=== PATIENT | female | born 1995 | race Caucasian/White ===

== ENCOUNTER → 2018-01-31 | Outpatient (CLI) | payer BC ==
[2018-01-31 07:36] LABS: BASOPHILS % (AUTO) 1 % (0-10); EOSINOPHILS # (AUTO) 0.2 10^3/uL (0.0-0.3); EOSINOPHILS % (AUTO) 3 % (0-10); HEMATOCRIT 40 % (35-52); HEMOGLOBIN 13.5 G/DL (11.5-16.0); LYMPHOCYTES % (AUTO) 34 % (12-44); MEAN CORPUSCULAR HEMOGLOBIN 31 PG (25-34); MEAN CORPUSCULAR HGB CONC 34 G/DL (32-36); MEAN CORPUSCULAR VOLUME 92 FL (80-99); MEAN PLATELET VOLUME 10.3 FL (7.4-10.4); MONOCYTES # (AUTO) 0.6 X 10^3 (0.0-1.0); MONOCYTES % (AUTO) 9 % (0-12); NEUTROPHILS # (AUTO) 3.2 X 10^3 (1.8-7.8); NEUTROPHILS % (AUTO) 54 % (42-75); PLATELET COUNT 264 10^3/uL (130-400); RED BLOOD COUNT 4.37 10^6/uL (4.35-5.85); RED CELL DISTRIBUTION WIDTH 12.4 % (10.0-14.5)
[2018-01-31 07:54] LABS: ALANINE AMINOTRANSFERASE 30 U/L (0-55); ALBUMIN 4.4 GM/DL (3.2-4.5); ALKALINE PHOSPHATASE 57 U/L (40-136); BILIRUBIN,TOTAL 0.5 MG/DL (0.1-1.0); BUN/CREATININE RATIO 12; CALCIUM 9.5 MG/DL (8.5-10.1); CARBON DIOXIDE 22 MMOL/L (21-32); CHLORIDE 104 MMOL/L (98-107); CREATININE SERUM 0.77 MG/DL (0.60-1.30); GFR ESTIMATED > 60; GLUCOSE 82 MG/DL (70-105); POTASSIUM 3.8 MMOL/L (3.6-5.0); SODIUM 135 MMOL/L (135-145); TOTAL PROTEIN 7.1 GM/DL (6.4-8.2)
[2018-01-31 08:15] LABS: FREE T4 (FREE THYROXINE) 1.15 NG/DL (0.70-1.48)
== END ==
LOC: LAB 07:05
PROVIDERS: ATTEND Internal Medicine
DX: N92.6 Irregular menstruation, unspecified (principal); E03.9 Hypothyroidism, unspecified; Z79.899 Other long term (current) drug therapy
CPT/HCPCS: 36415; 80053; 82670; 84144; 84403; 84439; 84443; 84481; 85025

== ENCOUNTER → 2018-03-01 | Outpatient (CLI) | payer BC ==
--- NOTE | 2018-03-01 08:20 | Diagnostic Imaging Report ---
PROCEDURE: US Thyroid. TECHNIQUE: Multiple real-time grayscale images were obtained of the thyroid in various projections. INDICATION: Hypothyroidism. FINDINGS: Right and left lobes of the thyroid gland measure 4.1 x 1.9 x 1.7 cm and 4.5 x 1.7 x 1.4 cm, respectively. Thyroid parenchyma is heterogeneous without discrete dominant mass. There is normal bilateral blood flow. No periglandular abnormality is seen. IMPRESSION: Heterogeneous thyroid gland could be related to chronic thyroiditis or developing multinodular goiter, however, no dominant lesion is identified. Dictated by: Dictated on workstation # [id number]
== END ==
LOC: RAD 07:44
PROVIDERS: ATTEND Nurse Practitioner
DX: E03.9 Hypothyroidism, unspecified (principal)
CPT/HCPCS: 76536

== ENCOUNTER → 2018-04-03 | Outpatient (CLI) | payer BC ==
[2018-04-03 09:28] LABS: FREE T4 (FREE THYROXINE) 1.36 NG/DL (0.70-1.48)
== END ==
LOC: LAB 08:21
PROVIDERS: ATTEND Nurse Practitioner
DX: E03.9 Hypothyroidism, unspecified (principal)
CPT/HCPCS: 36415; 84439; 84443; 84481

== ENCOUNTER → 2019-03-08 | Outpatient (CLI) | payer BC, OTHER ==
--- NOTE | 2019-03-08 14:36 | Diagnostic Imaging Report ---
EXAMINATION: US Thyroid. TECHNIQUE: Multiple real-time grayscale images were obtained of the thyroid in various projections. HISTORY: MULTI NODULAR GOITER FINDINGS: Comparison is 03/01/2018 The right lobe of the thyroid measures 4.2 x 2.1 x 1.3 cm. The left lobe of the thyroid measures 4.3 x 1.7 x 1.9 cm. The isthmus measures 3 mm. The size of the thyroid is normal. The echogenicity is mildly heterogeneous. There are no nodules. IMPRESSION: 1. No suspicious thyroid nodules. TIRADS categories: TIRADS 1: Benign No FNA or follow-up required TIRADS 2: Not Suspicious No FNA or follow-up required TIRADS 3: Mildly Suspicious FNA if ? 2.5 cm Follow if ? 1.5 cm (At 1, 3 and 5 years from initial scan) TIRADS 4: Moderately Suspicious FNA if ? 1.5 cm Follow if ? 1 cm (At 1, 2, 3 and 5 years from initial scan) TIRADS 5: Highly Suspicious FNA if ? 1 cm Follow if ? 0.5 cm (Annually for 5 years from initial scan) Dictated by: Dictated on workstation # [id number]
== END ==
LOC: RAD 13:50
PROVIDERS: ATTEND Family Medicine
DX: E04.2 Nontoxic multinodular goiter (principal)
CPT/HCPCS: 76536

== ENCOUNTER 2019-07-30 05:42 | Outpatient (CLI) | payer BC ==
[~2019-07-30] VITALS: Ht 175.3 cm; Wt 81.8 kg
[2019-07-30] MEDS ORDERED: NORG1TAB14 PO (12:48)
[2019-07-30] MEDS ORDERED: LEVO100T7 PO (12:48)
== END 2019-07-30 12:58 | disposition home or self-care (01) ==
LOC: PREOP 05:42
PROVIDERS: ATTEND Otolaryngology Otolaryngology/Facial Plastic Surgery
DX: Z01.818 Encounter for other preprocedural examination (principal)

== ENCOUNTER 2019-08-08 07:48 | Day surgery (SDC) | payer BC, OTHER ==
[~2019-08-08] VITALS: Ht 175.3 cm; Wt 81.8 kg
[2019-08-08] VITALS (13 sets, daily range): BP systolic 117–147; BP diastolic 63–95
[~2019-08-08 07:48] MED LIST: LEVO100T7 PO; NORG1TAB14 PO
--- OUTSIDE RECORDS SUMMARY | 2019-08-08 07:52 | XMS REPORT | Clinical Summary ---
Author Author Admin, Carolyn KUMARI Organization [facility] Address Unknown Phone Unavailable Allergies, Adverse Reactions, Alerts Allergy Name Reaction Description Start Date Severity Status Pr ovider NKDA Critical Active Afia Lindo MD Conditions or Problems Problem Name Problem Code Onset Date Status Entry Date Provider Comment Standard Description Annotate Irregular menses 626.4 Active Afia Lindo MD Irregular menstrual cycle Contraceptive management V25.09 Inactive Terry Lindo MD Encounter for other general counseling and advice on c ontraceptive management Contraceptive pill surveillance V25.41 Active 2018 Afia Lindo MD Encounter for surveillance of contracept nova pill WELL WOMAN EXAMINATION V72.31 Active Afia pa MD Routine gynecological examination Hypothyroidism 244.9 Active Afia Lindo MD Unspecified hypothyroidism BMI 27-27.9 Active Afia Lindo MD Body Mass Index 27.0-27.9, adult Overweight (BMI 25-29.9) Active Afia hedrick MD Overweight Medication List Medication Instructions Start Date Stop Date Generic Name NDC Status Provider Patient Instruction EMBEDA 30-1.2 MG ORAL CAPSULE EXTENDED RELEASE 1 table t daily for antibodies for thyroid MORPHINE-NALTREXONE 48175079433 Active Afia Lindo MD Active LEVOTHYROXINE SODIUM 100 MCG ORAL TABLET 1 tablet daily LEVOTHYROXINE SODIUM 28980549158 Active Afia Lindo MD Act nova SPRINTEC 28 0.25-35 MG-MCG ORAL TABLET 1 pill by mouth daily 10/26 NORGESTIMATE-ETH ESTRADIOL 04075620932 Active Afia Lindo MD Active MICROGESTIN /20 1-20 MG-MCG ORAL TABLET 1 tablet daily NORETHINDRONE ACET-ETHINYL EST 15916700134 No Longer Active Afia Lindo MD Active PROGESTERONE MICRONIZED CREAM Apply 1/2 to 1ML on arms , chest and abdomen at bedtime day's - of cycle then 7 days off-100mg PROGESTERONE MICRONIZED CREA 78537912785 No Longer Active Afia Lindo MD Active PROGESTERONE MICRONIZED CREAM Apply 1/2 to 1ML on arms , chest and abdomen at bedtime day's 06-11 of cycle then 7 days off-100mg PROGESTERONE MICRONIZED CREAM PROGESTERONE MICRONIZED CREA I nactive MICROGESTIN 1/20 1-20 MG-MCG ORAL TABLET 1 tablet daily MICROGESTIN 1/20 1-20 MG-MCG ORAL TABLET 7422220 NORETHINDRONE ACET- ETHINYL EST Inactive Advance Directives Directive Description Start Date PERMISSION TO SHARE Vital Signs Date Name Value Unit Range Description blood pressure, diastolic, repeated by physician 68 BP hargrove blood pressure, diastolic 68 mm[Hg] BP hargrove blood pressure, systolic, repeated by physician 121 BP sys blood pressure, systolic 121 mm[Hg] BP sys height E&M 69 [in_us] Bdy height pulse rate E&M 78 /min Heart rate temperature E&M 98.8 [degF] Body temp erature weight E&M 183.20 [lb_av] Weight Measure d Diagnostic Results Date Name Value Unit Range Description Lab Report: Chlamydia/GC APTIMA/53758 - Lab chlamydia DNA probe NOT DETECTED NOT DETECTED Lab Report: Chlamydia/GC APTIMA/13212 - Microbiology Neisseria gonorrhoeae DNA probe NOT DETECTED NO T DETECTED Encounters Code Encounter Date Provider Facility CPT-25704 Level 4 Est. Patient 15:26:22 CDT Afia mckinney MD [facility] CPT-21122 Level 3 Est. Patient 13:04:08 CDT Afia mckinney MD [facility] CPT-28111 Level 4 New Patient 12:04:05 CDT Afia sosa MD [facility] Procedures Code Procedure Name Date Entry Date Standard Desc ription CPT-13461 Prv Med Est Pt 18-39yrs 11:10:24 CDT 02/15 CPT-24987 Prv Med New Pt 18-39 yrs 11:35:44 CDT 02/09 CPT-73490 Sono pelvis non OB uterus ovaries cervix - XRAY USE ONLY 12:21:21 CDT
--- OUTSIDE RECORDS SUMMARY | 2019-08-08 07:52 | XMS REPORT | Clinical Summary ---
Author Author Admin, Carolyn KUMARI Organization [facility] Address Unknown Phone Unavailable Allergies, Adverse Reactions, [...] t daily for antibodies for thyroid MORPHINE-NALTREXONE 38165642090 Active Afia Lindo MD Active LEVOTHYROXINE SODIUM 100 MCG ORAL TABLET 1 tablet daily LEVOTHYROXINE SODIUM 57696525469 Active Afia Lindo MD Act nova SPRINTEC 28 0.25-35 MG-MCG ORAL TABLET 1 pill by mouth daily 10/26 NORGESTIMATE-ETH ESTRADIOL 47532969798 Active Afia Lindo MD Active MICROGESTIN /20 1-20 MG-MCG ORAL TABLET 1 tablet daily NORETHINDRONE ACET-ETHINYL EST 48386898078 No Longer Active Afia Lindo MD Active PROGESTERONE MICRONIZED CREAM Apply 1/2 to 1ML on arms , chest and abdomen at bedtime day's - of cycle then 7 days off-100mg PROGESTERONE MICRONIZED CREA 85236954073 No Longer Active Afia Lindo MD Active PROGESTERONE MICRONIZED CREAM Apply 1/2 to 1ML on arms , chest and abdomen at bedtime day's 06-11 of cycle then 7 days off-100mg PROGESTERONE MICRONIZED CREAM PROGESTERONE MICRONIZED CREA I nactive MICROGESTIN 1/20 1-20 MG-MCG ORAL TABLET 1 tablet daily MICROGESTIN 1/20 1-20 MG-MCG ORAL TABLET 7501095 NORETHINDRONE ACET- ETHINYL EST Inactive Advance Directives [...] Value Unit Range Description Lab Report: Chlamydia/GC APTIMA/71577 - Lab chlamydia DNA probe NOT DETECTED NOT DETECTED Lab Report: Chlamydia/GC APTIMA/39802 - Microbiology Neisseria gonorrhoeae DNA probe NOT DETECTED NO T DETECTED Encounters Code Encounter Date Provider Facility CPT-35567 Level 4 Est. Patient 15:26:22 CDT Afia mckinney MD [facility] CPT-94592 Level 3 Est. Patient 13:04:08 CDT Afia mckinney MD [facility] CPT-42833 Level 4 New Patient 12:04:05 CDT Afia sosa MD [facility] Procedures Code Procedure Name Date Entry Date Standard Desc ription CPT-34406 Prv Med Est Pt 18-39yrs 11:10:24 CDT 02/15 CPT-56559 Prv Med New Pt 18-39 yrs 11:35:44 CDT 02/09 CPT-34729 Sono pelvis non OB uterus ovaries cervix - XRAY USE ONLY 12:21:21 CDT
--- OUTSIDE RECORDS SUMMARY | 2019-08-08 07:52 | XMS REPORT | Clinical Summary ---
Author Author Admin, Carolyn KUMARI Organization [facility] Address Unknown Phone Unavailable Allergies, Adverse Reactions, Alerts Allergy Name Reaction Description Start Date Severity Status Pr ovider NKDA Critical Active Afia Lindo MD Conditions or Problems Problem Name Problem Code Onset Date Status Entry Date Provider Comment Standard Description Annotate Irregular menses 626.4 Active Afia Lindo MD Irregular menstrual cycle Contraceptive management V25.09 Active Afia mckinney MD Encounter for other general counseling and advice on contraceptive management WELL WOMAN EXAMINATION V72.31 Active Afia pa MD Routine gynecological examination Hypothyroidism 244.9 Active Afia Lindo MD Unspecified hypothyroidism Medication List Medication Instructions Start Date Stop Date Generic Name NDC Status Provider Patient Instruction SPRINTEC 28 0.25-35 MG-MCG ORAL TABLET 1 pill by mouth daily 10/26 NORGESTIMATE-ETH ESTRADIOL 67460859903 Active Afia Lindo MD Active MICROGESTIN 1/20 1-20 MG-MCG ORAL TABLET 1 tablet daily NORETHINDRONE ACET-ETHINYL EST 28582576781 No Longer Active Afia Lindo MD Active PROGESTERONE MICRONIZED CREAM Apply 1/2 to 1ML on arms , chest and abdomen at bedtime day's 06-11 of cycle then 7 days off-100mg PROGESTERONE MICRONIZED CREA 80978050182 No Longer Active Afia Lindo MD Active LEVOTHYROXINE SODIUM 75 MCG ORAL TABLET 1 tablet daily LEVOTHYROXINE SODIUM 15192919164 Active Afia Lindo MD Act nova PROGESTERONE MICRONIZED CREAM Apply 1/2 to 1ML on arms , chest and abdomen at bedtime day's 1-21 of cycle then 7 days off-100mg PROGESTERONE MICRONIZED CREAM PROGESTERONE MICRONIZED CREA I nactive MICROGESTIN 1/20 1-20 MG-MCG ORAL TABLET 1 tablet daily MICROGESTIN 1/20 1-20 MG-MCG ORAL TABLET [id number] NORETHINDRONE ACET- ETHINYL EST Inactive Advance Directives Directive Description Start Date PERMISSION TO SHARE Vital Signs Date Name Value Unit Range Description blood pressure, diastolic 71 mm[Hg] BP hargrove blood pressure, systolic 137 mm[Hg] BP sys height E&M 69 [in_us] Bdy height pulse rate E&M 74 /min Heart rate temperature E&M 98.1 [degF] Body temp erature weight E&M 168.80 [lb_av] Weight Measure d Diagnostic Results Date Name Value Unit Range Description Lab Report: Chlamydia/GC APTIMA/70784 - Lab chlamydia DNA probe NOT DETECTED NOT DETECTED Lab Report: Chlamydia/GC APTIMA/86670 - Microbiology Neisseria gonorrhoeae DNA probe NOT DETECTED NO T DETECTED Encounters Code Encounter Date Provider Facility CPT-15783 Level 4 Est. Patient 15:26:22 CDT Afia mckinney MD [facility] CPT-66410 Level 3 Est. Patient 13:04:08 CDT Afia mckinney MD [facility] CPT-37162 Level 4 New Patient 12:04:05 CDT Afia sosa MD [facility] Procedures Code Procedure Name Date Entry Date Standard Desc ription CPT-85274 Prv Med New Pt 18-39 yrs 11:35:44 CDT 02/09 CPT-31933 Sono pelvis non OB uterus ovaries cervix - XRAY USE ONLY 12:21:21 CDT
--- OUTSIDE RECORDS SUMMARY | 2019-08-08 07:52 | XMS REPORT | Clinical Summary ---
Author Author Admin, Carolyn KUMARI Organization [facility] Address Unknown Phone Unavailable Allergies, Adverse Reactions, [...] t daily for antibodies for thyroid MORPHINE-NALTREXONE 55635171230 Active Afia Lindo MD Active LEVOTHYROXINE SODIUM 100 MCG ORAL TABLET 1 tablet daily LEVOTHYROXINE SODIUM 20693707156 Active Afia Lindo MD Act nova SPRINTEC 28 0.25-35 MG-MCG ORAL TABLET 1 pill by mouth daily 10/26 NORGESTIMATE-ETH ESTRADIOL 91150411622 Active Afia Lindo MD Active MICROGESTIN /20 1-20 MG-MCG ORAL TABLET 1 tablet daily NORETHINDRONE ACET-ETHINYL EST 66721558028 No Longer Active Afia Lindo MD Active PROGESTERONE MICRONIZED CREAM Apply 1/2 to 1ML on arms , chest and abdomen at bedtime day's - of cycle then 7 days off-100mg PROGESTERONE MICRONIZED CREA 44938504601 No Longer Active Afia Lindo MD Active PROGESTERONE MICRONIZED CREAM Apply 1/2 to 1ML on arms , chest and abdomen at bedtime day's - of cycle then 7 days off-100mg PROGESTERONE MICRONIZED CREAM PROGESTERONE MICRONIZED CREA I nactive MICROGESTIN 1/20 1-20 MG-MCG ORAL TABLET 1 tablet daily MICROGESTIN 1/20 1-20 MG-MCG ORAL TABLET 7549560 NORETHINDRONE ACET- ETHINYL EST Inactive Advance Directives Directive Description Start Date PERMISSION TO SHARE Encounters Code Encounter Date Provider Facility CPT-48924 Level 4 Est. Patient 15:26:22 CDT Afia mckinney MD [facility] CPT-15852 Level 3 Est. Patient 13:04:08 CDT Afia mckinney MD [facility] CPT-38151 Level 4 New Patient 12:04:05 CDT Afia sosa MD [facility] Procedures Code Procedure Name Date Entry Date Standard Desc ription CPT-16672 Prv Med Est Pt 18-39yrs 11:10:24 CDT 02/15 CPT-65498 Prv Med New Pt 18-39 yrs 11:35:44 CDT 02/09 CPT-19319 Sono pelvis non OB uterus ovaries cervix - XRAY USE ONLY 12:21:21 CDT
--- OUTSIDE RECORDS SUMMARY | 2019-08-08 07:52 | XMS REPORT | Clinical Summary ---
Author Author Admin, Carolyn KUMARI Organization [facility] Address Unknown Phone Unavailable Allergies, Adverse Reactions, [...] t daily for antibodies for thyroid MORPHINE-NALTREXONE 77840196073 Active Afia Lindo MD Active LEVOTHYROXINE SODIUM 100 MCG ORAL TABLET 1 tablet daily LEVOTHYROXINE SODIUM 42720224290 Active Afia Lindo MD Act nova SPRINTEC 28 0.25-35 MG-MCG ORAL TABLET 1 pill by mouth daily 10/26 NORGESTIMATE-ETH ESTRADIOL 07330547740 Active Afia Lindo MD Active MICROGESTIN /20 1-20 MG-MCG ORAL TABLET 1 tablet daily NORETHINDRONE ACET-ETHINYL EST 37704647248 No Longer Active Afia Lindo MD Active PROGESTERONE MICRONIZED CREAM Apply 1/2 to 1ML on arms , chest and abdomen at bedtime day's - of cycle then 7 days off-100mg PROGESTERONE MICRONIZED CREA 56336987891 No Longer Active Afia Lindo MD Active PROGESTERONE MICRONIZED CREAM Apply 1/2 to 1ML on arms , chest and abdomen at bedtime day's 06-11 of cycle then 7 days off-100mg PROGESTERONE MICRONIZED CREAM PROGESTERONE MICRONIZED CREA I nactive MICROGESTIN 1/20 1-20 MG-MCG ORAL TABLET 1 tablet daily MICROGESTIN 1/20 1-20 MG-MCG ORAL TABLET 1442264 NORETHINDRONE ACET- ETHINYL EST Inactive Advance Directives [...] Value Unit Range Description Lab Report: Chlamydia/GC APTIMA/50342 - Lab chlamydia DNA probe NOT DETECTED NOT DETECTED Lab Report: Chlamydia/GC APTIMA/60398 - Microbiology Neisseria gonorrhoeae DNA probe NOT DETECTED NO T DETECTED Encounters Code Encounter Date Provider Facility CPT-58707 Level 4 Est. Patient 15:26:22 CDT Afia mckinney MD [facility] CPT-18732 Level 3 Est. Patient 13:04:08 CDT Afia mckinney MD [facility] CPT-14064 Level 4 New Patient 12:04:05 CDT Af[address] [facility] Procedures Code Procedure Name Date Entry Date Standard Desc ription CPT-93114 Prv Med Est Pt 18-39yrs 11:10:24 CDT 02/15 CPT-56763 Prv Med New Pt 18-39 yrs 11:35:44 CDT 02/09 CPT-29285 Sono pelvis non OB uterus ovaries cervix - XRAY USE ONLY 12:21:21 CDT
--- OUTSIDE RECORDS SUMMARY | 2019-08-08 07:52 | XMS REPORT | Clinical Summary ---
Author Author Admin, Carolyn KUMARI Organization [facility] Address Unknown Phone Unavailable Allergies, Adverse Reactions, [...] pill by mouth daily 10/26 NORGESTIMATE-ETH ESTRADIOL 84301146851 Active Afia Lindo MD Active MICROGESTIN 1/20 1-20 MG-MCG ORAL TABLET 1 tablet daily NORETHINDRONE ACET-ETHINYL EST 54741755675 No Longer Active Afia Lindo MD Active PROGESTERONE MICRONIZED CREAM Apply 1/2 to 1ML on arms , chest and abdomen at bedtime day's 06-11 of cycle then 7 days off-100mg PROGESTERONE MICRONIZED CREA 63186803608 No Longer Active Afia Lindo MD Active LEVOTHYROXINE SODIUM 75 MCG ORAL TABLET 1 tablet daily LEVOTHYROXINE SODIUM 01626282648 Active Afia Lindo MD Act nova PROGESTERONE MICRONIZED CREAM Apply 1/2 to 1ML on arms , chest and abdomen at bedtime day's 1-21 of cycle then 7 days off-100mg PROGESTERONE MICRONIZED CREAM PROGESTERONE MICRONIZED CREA I nactive MICROGESTIN 1/20 1-20 MG-MCG ORAL TABLET 1 tablet daily MICROGESTIN 1/20 1-20 MG-MCG ORAL TABLET [id number] NORETHINDRONE ACET- ETHINYL EST Inactive Advance Directives [...] Value Unit Range Description Lab Report: Chlamydia/GC APTIMA/59548 - Lab chlamydia DNA probe NOT DETECTED NOT DETECTED Lab Report: Chlamydia/GC APTIMA/40750 - Microbiology Neisseria gonorrhoeae DNA probe NOT DETECTED NO T DETECTED Encounters Code Encounter Date Provider Facility CPT-64128 Level 4 Est. Patient 15:26:22 CDT Afia mckinney MD [facility] CPT-50147 Level 3 Est. Patient 13:04:08 CDT Afia mckinney MD [facility] CPT-19733 Level 4 New Patient 12:04:05 CDT Afia sosa MD [facility] Procedures Code Procedure Name Date Entry Date Standard Desc ription CPT-24257 Prv Med New Pt 18-39 yrs 11:35:44 CDT 02/09 CPT-76049 Sono pelvis non OB uterus ovaries cervix - XRAY USE ONLY 12:21:21 CDT
--- OUTSIDE RECORDS SUMMARY | 2019-08-08 07:52 | XMS REPORT | Clinical Summary ---
Author Author Admin, Carolyn KUMARI Organization [facility] Address Unknown Phone Unavailable [...] t daily for antibodies for thyroid MORPHINE-NALTREXONE 72165176318 Active Afia Lindo MD Active LEVOTHYROXINE SODIUM 100 MCG ORAL TABLET 1 tablet daily LEVOTHYROXINE SODIUM 68328148484 Active Afia Lindo MD Act nova SPRINTEC 28 0.25-35 MG-MCG ORAL TABLET 1 pill by mouth daily 10/26 NORGESTIMATE-ETH ESTRADIOL 99617870295 Active Afia Lindo MD Active MICROGESTIN /20 1-20 MG-MCG ORAL TABLET 1 tablet daily NORETHINDRONE ACET-ETHINYL EST 56008020424 No Longer Active Afia Lindo MD Active PROGESTERONE MICRONIZED CREAM Apply 1/2 to 1ML on arms , chest and abdomen at bedtime day's - of cycle then 7 days off-100mg PROGESTERONE MICRONIZED CREA 51972315528 No Longer Active Afia Lindo MD Active PROGESTERONE MICRONIZED CREAM Apply 1/2 to 1ML on arms , chest and abdomen at bedtime day's 06-11 of cycle then 7 days off-100mg PROGESTERONE MICRONIZED CREAM PROGESTERONE MICRONIZED CREA I nactive MICROGESTIN 1/20 1-20 MG-MCG ORAL TABLET 1 tablet daily MICROGESTIN 1/20 1-20 MG-MCG ORAL TABLET 0345295 NORETHINDRONE ACET- ETHINYL EST Inactive Advance Directives [...] Value Unit Range Description Lab Report: Chlamydia/GC APTIMA/23985 - Lab chlamydia DNA probe NOT DETECTED NOT DETECTED Lab Report: Chlamydia/GC APTIMA/30157 - Microbiology Neisseria gonorrhoeae DNA probe NOT DETECTED NO T DETECTED Encounters Code Encounter Date Provider Facility CPT-44605 Level 4 Est. Patient 15:26:22 CDT Afia mckinney MD [facility] CPT-14867 Level 3 Est. Patient 13:04:08 CDT Afia mckinney MD [facility] CPT-16512 Level 4 New Patient 12:04:05 CDT Afia sosa MD [facility] Procedures Code Procedure Name Date Entry Date Standard Desc ription CPT-56684 Prv Med Est Pt 18-39yrs 11:10:24 CDT 02/15 CPT-30298 Prv Med New Pt 18-39 yrs 11:35:44 CDT 02/09 CPT-81502 Sono pelvis non OB uterus ovaries cervix - XRAY USE ONLY 12:21:21 CDT
--- OUTSIDE RECORDS SUMMARY | 2019-08-08 07:52 | XMS REPORT | Clinical Summary ---
Author Author Admin, Carolyn KUMARI Organization [facility] Address Unknown Phone Unavailable Allergies, Adverse [...] t daily for antibodies for thyroid MORPHINE-NALTREXONE 78948643819 Active Afia Lindo MD Active LEVOTHYROXINE SODIUM 100 MCG ORAL TABLET 1 tablet daily LEVOTHYROXINE SODIUM 71258082784 Active Afia Lindo MD Act nova SPRINTEC 28 0.25-35 MG-MCG ORAL TABLET 1 pill by mouth daily 10/26 NORGESTIMATE-ETH ESTRADIOL 64030366530 Active Afia Lindo MD Active MICROGESTIN /20 1-20 MG-MCG ORAL TABLET 1 tablet daily NORETHINDRONE ACET-ETHINYL EST 78785255717 No Longer Active Afia Lindo MD Active PROGESTERONE MICRONIZED CREAM Apply 1/2 to 1ML on arms , chest and abdomen at bedtime day's - of cycle then 7 days off-100mg PROGESTERONE MICRONIZED CREA 48188442634 No Longer Active Afia Lindo MD Active PROGESTERONE MICRONIZED CREAM Apply 1/2 to 1ML on arms , chest and abdomen at bedtime day's - of cycle then 7 days off-100mg PROGESTERONE MICRONIZED CREAM PROGESTERONE MICRONIZED CREA I nactive MICROGESTIN 1/20 1-20 MG-MCG ORAL TABLET 1 tablet daily MICROGESTIN 1/20 1-20 MG-MCG ORAL TABLET 8256647 NORETHINDRONE ACET- ETHINYL EST Inactive Advance Directives Directive Description Start Date PERMISSION TO SHARE Diagnostic Results Date Name Value Unit Range Description Lab Report: Chlamydia/GC APTIMA/74693 - Lab chlamydia DNA probe NOT DETECTED NOT DETECTED Lab Report: Chlamydia/GC APTIMA/23185 - Microbiology Neisseria gonorrhoeae DNA probe NOT DETECTED NO T DETECTED Encounters Code Encounter Date Provider Facility CPT-79699 Level 4 Est. Patient 15:26:22 CDT Afia mckinney MD [facility] CPT-04652 Level 3 Est. Patient 13:04:08 CDT Afia mckinney MD [facility] CPT-36541 Level 4 New Patient 12:04:05 CDT Afia sosa MD [facility] Procedures Code Procedure Name Date Entry Date Standard Desc ription CPT-66438 Prv Med Est Pt 18-39yrs 11:10:24 CDT 02/15 CPT-16575 Prv Med New Pt 18-39 yrs 11:35:44 CDT 02/09 CPT-96173 Sono pelvis non OB uterus ovaries cervix - XRAY USE ONLY 12:21:21 CDT
--- OUTSIDE RECORDS SUMMARY | 2019-08-08 07:52 | XMS REPORT | Clinical Summary ---
Author Author Admin, Carolyn KUMARI Organization [facility] Address Unknown Phone Unavailable Allergies, Adverse Reactions, [...] t daily for antibodies for thyroid MORPHINE-NALTREXONE 70752924430 Active Afia Lindo MD Active LEVOTHYROXINE SODIUM 100 MCG ORAL TABLET 1 tablet daily LEVOTHYROXINE SODIUM 69217011892 Active Afia Lindo MD Act nova SPRINTEC 28 0.25-35 MG-MCG ORAL TABLET 1 pill by mouth daily 10/26 NORGESTIMATE-ETH ESTRADIOL 09010851831 Active Afia Lindo MD Active MICROGESTIN /20 1-20 MG-MCG ORAL TABLET 1 tablet daily NORETHINDRONE ACET-ETHINYL EST 71808772498 No Longer Active Afia Lindo MD Active PROGESTERONE MICRONIZED CREAM Apply 1/2 to 1ML on arms , chest and abdomen at bedtime day's - of cycle then 7 days off-100mg PROGESTERONE MICRONIZED CREA 19587240363 No Longer Active Afia Lindo MD Active PROGESTERONE MICRONIZED CREAM Apply 1/2 to 1ML on arms , chest and abdomen at bedtime day's - of cycle then 7 days off-100mg PROGESTERONE MICRONIZED CREAM PROGESTERONE MICRONIZED CREA I nactive MICROGESTIN 1/20 1-20 MG-MCG ORAL TABLET 1 tablet daily MICROGESTIN 1/20 1-20 MG-MCG ORAL TABLET 9550888 NORETHINDRONE ACET- ETHINYL EST Inactive Advance Directives Directive Description Start Date PERMISSION TO SHARE Diagnostic Results Date Name Value Unit Range Description Lab Report: Chlamydia/GC APTIMA/62183 - Lab chlamydia DNA probe NOT DETECTED NOT DETECTED Lab Report: Chlamydia/GC APTIMA/41298 - Microbiology Neisseria gonorrhoeae DNA probe NOT DETECTED NO T DETECTED Encounters Code Encounter Date Provider Facility CPT-62410 Level 4 Est. Patient 15:26:22 CDT Afia mckinney MD [facility] CPT-76094 Level 3 Est. Patient 13:04:08 CDT Afia mckinney MD [facility] CPT-01784 Level 4 New Patient 12:04:05 CDT Afia sosa MD [facility] Procedures Code Procedure Name Date Entry Date Standard Desc ription CPT-39925 Prv Med Est Pt 18-39yrs 11:10:24 CDT 02/15 CPT-16311 Prv Med New Pt 18-39 yrs 11:35:44 CDT 02/09 CPT-72277 Sono pelvis non OB uterus ovaries cervix - XRAY USE ONLY 12:21:21 CDT
--- OUTSIDE RECORDS SUMMARY | 2019-08-08 07:53 | XMS REPORT | Clinical Summary ---
Author Author Admin, Carolyn KUMARI Organization [facility] Address Unknown Phone Unavailable Allergies, Adverse Reactions, Alerts Allergy Name Reaction Description Start Date Severity Status Pr ovider No Known Allergies Mandy esposito LRT NKDA Critical Active Afia Lindo MD Conditions [...] pill by mouth daily 10/26 NORGESTIMATE-ETH ESTRADIOL 58428929911 Active Afia Lindo MD Active MICROGESTIN 20 1-20 MG-MCG ORAL TABLET 1 tablet daily NORETHINDRONE ACET-ETHINYL EST 79899919898 No Longer Active Afia Lindo MD Active PROGESTERONE MICRONIZED CREAM Apply 1/2 to 1ML on arms , chest and abdomen at bedtime day's 1- of cycle then 7 days off-100mg PROGESTERONE MICRONIZED CREA 55744085112 No Longer Active Afia Lindo MD Active LEVOTHYROXINE SODIUM 75 MCG ORAL TABLET 1 tablet daily LEVOTHYROXINE SODIUM 39504946872 Active Afia Lindo MD Act nova PROGESTERONE MICRONIZED CREAM Apply 1/2 to 1ML on arms , chest and abdomen at bedtime day's 1-21 of cycle then 7 days off-100mg PROGESTERONE MICRONIZED CREAM PROGESTERONE MICRONIZED CREA I nactive MICROGESTIN 1/20 1-20 MG-MCG ORAL TABLET 1 tablet daily MICROGESTIN 1/20 1-20 MG-MCG ORAL TABLET [id number] NORETHINDRONE ACET- ETHINYL EST Inactive Advance Directives Directive Description Start Date PERMISSION TO SHARE Diagnostic Results Date Name Value Unit Range Description Lab Report: Chlamydia/GC APTIMA/34009 - Lab chlamydia DNA probe NOT DETECTED NOT DETECTED Lab Report: Chlamydia/GC APTIMA/28623 - Microbiology Neisseria gonorrhoeae DNA probe NOT DETECTED NO T DETECTED Encounters Code Encounter Date Provider Facility CPT-40799 Level 4 Est. Patient 15:26:22 CDT Afia mckinney MD [facility] CPT-29344 Level 3 Est. Patient 13:04:08 CDT Afia mckinney MD [facility] CPT-08938 Level 4 New Patient 12:04:05 CDT Afia sosa MD [facility] Procedures Code Procedure Name Date Entry Date Standard Desc ription CPT-53636 Prv Med New Pt 18-39 yrs 11:35:44 CDT 02/09 CPT-10446 Sono pelvis non OB uterus ovaries cervix - XRAY USE ONLY 12:21:21 CDT
--- OUTSIDE RECORDS SUMMARY | 2019-08-08 07:53 | XMS REPORT | Clinical Summary ---
Author Author Admin, Carolyn KUMARI Organization [facility] Address Unknown Phone Unavailable Allergies, [...] pill by mouth daily 10/26 NORGESTIMATE-ETH ESTRADIOL 50242586622 Active Afia Lindo MD Active MICROGESTIN /20 1-20 MG-MCG ORAL TABLET 1 tablet daily NORETHINDRONE ACET-ETHINYL EST 29855830434 No Longer Active Afia Lindo MD Active PROGESTERONE MICRONIZED CREAM Apply 1/2 to 1ML on arms , chest and abdomen at bedtime day's 1- of cycle then 7 days off-100mg PROGESTERONE MICRONIZED CREA 05160886032 No Longer Active Afia Lindo MD Active LEVOTHYROXINE SODIUM 75 MCG ORAL TABLET 1 tablet daily LEVOTHYROXINE SODIUM 97364199662 Active Afia Lindo MD Act nova PROGESTERONE MICRONIZED CREAM Apply 1/2 to 1ML on arms , chest and abdomen at bedtime day's 1-21 of cycle then 7 days off-100mg PROGESTERONE MICRONIZED CREAM PROGESTERONE MICRONIZED CREA I nactive MICROGESTIN 1/20 1-20 MG-MCG ORAL TABLET 1 tablet daily MICROGESTIN 1/20 1-20 MG-MCG ORAL TABLET 3938455 NORETHINDRONE ACET- ETHINYL EST Inactive Advance Directives Directive Description Start Date PERMISSION TO SHARE Encounters Code Encounter Date Provider Facility CPT-99695 Level 4 Est. Patient 15:26:22 CDT Afia mckinney MD [facility] CPT-28727 Level 3 Est. Patient 13:04:08 CDT Afia mckinney MD [facility] CPT-40497 Level 4 New Patient 12:04:05 CDT Afia sosa MD [facility] Procedures Code Procedure Name Date Entry Date Standard Desc ription CPT-71469 Prv Med New Pt 18-39 yrs 11:35:44 CDT 02/09 CPT-07018 Sono pelvis non OB uterus ovaries cervix - XRAY USE ONLY 12:21:21 CDT
--- OUTSIDE RECORDS SUMMARY | 2019-08-08 07:53 | XMS REPORT | Clinical Summary ---
Author Author Admin, Carolyn KUMARI Organization [facility] Address Unknown Phone Unavailable Allergies, [...] pill by mouth daily 10/26 NORGESTIMATE-ETH ESTRADIOL 85137602575 Active Afia Lindo MD Active MICROGESTIN 20 1-20 MG-MCG ORAL TABLET 1 tablet daily NORETHINDRONE ACET-ETHINYL EST 68478829298 No Longer Active Afia Lindo MD Active PROGESTERONE MICRONIZED CREAM Apply 1/2 to 1ML on arms , chest and abdomen at bedtime day's 1- of cycle then 7 days off-100mg PROGESTERONE MICRONIZED CREA 36654956418 No Longer Active Afia Lindo MD Active LEVOTHYROXINE SODIUM 75 MCG ORAL TABLET 1 tablet daily LEVOTHYROXINE SODIUM 79113341696 Active Afia Lindo MD Act nova PROGESTERONE MICRONIZED CREAM Apply 1/2 to 1ML on arms , chest and abdomen at bedtime day's 1-21 of cycle then 7 days off-100mg PROGESTERONE MICRONIZED CREAM PROGESTERONE MICRONIZED CREA I nactive MICROGESTIN 1/20 1-20 MG-MCG ORAL TABLET 1 tablet daily MICROGESTIN 1/20 1-20 MG-MCG ORAL TABLET 1307735 NORETHINDRONE ACET- ETHINYL EST Inactive Advance Directives Directive Description Start Date PERMISSION TO SHARE Diagnostic Results Date Name Value Unit Range Description Lab Report: Chlamydia/GC APTIMA/05134 - Lab chlamydia DNA probe NOT DETECTED NOT DETECTED Lab Report: Chlamydia/GC APTIMA/36978 - Microbiology Neisseria gonorrhoeae DNA probe NOT DETECTED NO T DETECTED Encounters Code Encounter Date Provider Facility CPT-53094 Level 4 Est. Patient 15:26:22 CDT Afia mckinney MD [facility] CPT-98814 Level 3 Est. Patient 13:04:08 CDT Afia mckinney MD [facility] CPT-10646 Level 4 New Patient 12:04:05 CDT Afia sosa MD [facility] Procedures Code Procedure Name Date Entry Date Standard Desc ription CPT-33534 Prv Med New Pt 18-39 yrs 11:35:44 CDT 02/09 CPT-53836 Sono pelvis non OB uterus ovaries cervix - XRAY USE ONLY 12:21:21 CDT
--- OUTSIDE RECORDS SUMMARY | 2019-08-08 07:53 | XMS REPORT | Clinical Summary ---
Author Author Admin, Carolyn KUMARI Organization [facility] Address Unknown Phone Unavailable Allergies, Adverse Reactions, Alerts Allergy Name Reaction Description Start Date Severity Status Pr ovider No Known Allergies Mandy esposito LRT Conditions or Problems Problem Name Problem Code Onset Date Status Entry Date Provider Comment Standard Description Annotate Irregular menses 626.4 Active Afia Lindo MD Irregular menstrual cycle Contraceptive management V25.09 Active Afia mckinney MD Encounter for other general counseling and advice on contraceptive management Medication List Medication Instructions Start Date Stop Date Generic Name NDC Status Provider Patient Instruction SPRINTEC 28 0.25-35 MG-MCG ORAL TABLET 1 pill by mouth daily 10/26 NORGESTIMATE-ETH ESTRADIOL 77154638545 Active Emily Ortega LPN Active MICROGESTIN 1/20 1-20 MG-MCG ORAL TABLET 1 tablet daily NORETHINDRONE ACET-ETHINYL EST 35756147227 No Longer Active Afia Lindo MD Active PROGESTERONE MICRONIZED CREAM Apply 1/2 to 1ML on arms , chest and abdomen at bedtime day's - of cycle then 7 days off-100mg PROGESTERONE MICRONIZED CREA 34750854959 No Longer Active Afia Lindo MD Active LEVOTHYROXINE SODIUM 75 MCG ORAL TABLET 1 tablet daily LEVOTHYROXINE SODIUM 81116495842 Active Afia Lindo MD Act nova PROGESTERONE MICRONIZED CREAM Apply 1/2 to 1ML on arms , chest and abdomen at bedtime day's - of cycle then 7 days off-100mg PROGESTERONE MICRONIZED CREAM PROGESTERONE MICRONIZED CREA I nactive MICROGESTIN 1/20 1-20 MG-MCG ORAL TABLET 1 tablet daily MICROGESTIN 06/10 1-20 MG-MCG ORAL TABLET 2594826 NORETHINDRONE ACET- ETHINYL EST Inactive Advance Directives Directive Description Start Date PERMISSION TO SHARE Vital Signs Date Name Value Unit Range Description blood pressure, diastolic 73 mm[Hg] BP [place] blood pressure, systolic 107 mm[Hg] BP sys pulse rate E&M 60 /min Heart rate temperature E&M 98 [degF] Body temp erature weight E&M 157.2 [lb_av] Weight Measure d Encounters Code Encounter Date Provider Facility CPT-65537 Level 4 Est. Patient 15:26:22 CDT Afia mckinney MD [facility] CPT-84807 Level 3 Est. Patient 13:04:08 CDT Afia mckinney MD [facility] CPT-35704 Level 4 New Patient 12:04:05 CDT Afia sosa MD [facility] Procedures Code Procedure Name Date Entry Date Standard Desc ription CPT-81563 Sono pelvis non OB uterus ovaries cervix - XRAY USE ONLY 12:21:21 CDT
--- OUTSIDE RECORDS SUMMARY | 2019-08-08 07:53 | XMS REPORT | Clinical Summary ---
Author Author Admin, Carolyn KUMARI Organization [facility] Address Unknown Phone Unavailable Allergies, Adverse Reactions, Alerts Allergy Name Reaction Description Start Date Severity Status Pr ovider Allergies Unknown Conditions or Problems Problem Name Problem Code Onset Date Status Entry Date Provider Comment Standard Description Annotate Irregular menses 626.4 Active Afia Lindo MD Irregular menstrual cycle Contraceptive management V25.09 Active Afia mckinney MD Encounter for other general counseling and advice on contraceptive management Medication List Medication Instructions Start Date Stop Date Generic Name NDC Status Provider Patient Instruction PROGESTERONE MICRONIZED CREA Apply 1/2 to 1ML on arms, chest and abdomen at bedtime day's 1- of cycle then 7 days off-100mg PROGESTERONE MICRONIZED CREA 69285180138 Active Afia Lindo MD Active MICROGESTIN 06/10 1-20 MG-MCG ORAL TABS 1 tablet daily NORETHINDRONE ACET-ETHINYL EST 02924642098 Active Afia Lindo MD Active LEVOTHYROXINE SODIUM 75 MCG ORAL TABS 1 tablet daily LEVOTHYROXINE SODIUM 26841006167 Active Afia Lindo MD Active Encounters Code Encounter Date Provider Facility CPT-47276 Level 4 New Patient 12:04:05 CDT Afia sosa MD [facility]
--- OUTSIDE RECORDS SUMMARY | 2019-08-08 07:53 | XMS REPORT | Clinical Summary ---
Author Author Admin, Carolyn KUMARI Organization [facility] Address Unknown Phone Unavailable Allergies, Adverse Reactions, Alerts Allergy Name Reaction Description Start Date Severity Status Pr ovider No Known Allergies Karol Clark Conditions or Problems Problem Name Problem Code [...] then 7 days off-100mg PROGESTERONE MICRONIZED CREA 88646579240 Active Afia Lindo MD Active MICROGESTIN 06/10 1-20 MG-MCG ORAL TABS 1 tablet daily NORETHINDRONE ACET-ETHINYL EST 39529711653 Active Afia Lindo MD Active LEVOTHYROXINE SODIUM 75 MCG ORAL TABS 1 tablet daily LEVOTHYROXINE SODIUM 73079106240 Active Afia Lindo MD Active Vital Signs Date Name Value Unit Range Description blood pressure, diastolic - 8462-4 88 mm[Hg] BP [place] blood pressure, systolic - 8480-6 137 mm[Hg] BP sys height E&M - 8302-2 69 [in_us] Bdy h eight pulse rate E&M - 8867-4 75 /min H eart rate temperature E&M 99.3 [degF] Body temp erature weight E&M - 3141-9 158 [lb_av] Weigh t Measured Diagnostic Results Date Name Value Unit Range Description Lab Report: Chlamydia/GC APTIMA/95715, C ULTURE, URINE, ROUTINE - Lab chlamydia DNA probe NOT DETECTED NOT DETECTED Lab Report: Chlamydia/GC APTIMA/99531, C ULTURE, URINE, ROUTINE - Microbiology Neisseria gonorrhoeae DNA probe NOT DETECTED NO T DETECTED Encounters Code Encounter Date Provider Facility CPT-99692 Level 4 New Patient 12:04:05 CDT Afia sosa MD [facility]
--- OUTSIDE RECORDS SUMMARY | 2019-08-08 07:53 | XMS REPORT | Clinical Summary ---
Author Author Admin, Carolyn KUMARI Organization [facility] Address Unknown Phone Unavailable Allergies, Adverse [...] then 7 days off-100mg PROGESTERONE MICRONIZED CREA 11519798599 Active Afia Lindo MD Active MICROGESTIN 06/10 1-20 MG-MCG ORAL TABS 1 tablet daily NORETHINDRONE ACET-ETHINYL EST 50670015154 Active Afia Lindo MD Active LEVOTHYROXINE SODIUM 75 MCG ORAL TABS 1 tablet daily LEVOTHYROXINE SODIUM 08812941617 Active Afia Lindo MD Active Vital Signs [...] Value Unit Range Description Lab Report: Chlamydia/GC APTIMA/02412, C ULTURE, URINE, ROUTINE - Lab chlamydia DNA probe NOT DETECTED NOT DETECTED Lab Report: Chlamydia/GC APTIMA/05528, C ULTURE, URINE, ROUTINE - Microbiology Neisseria gonorrhoeae DNA probe NOT DETECTED NO T DETECTED Encounters Code Encounter Date Provider Facility CPT-80473 Level 4 New Patient 12:04:05 CDT Afia sosa MD [facility] Procedures Code Procedure Name Date Entry Date Standard Desc ription CPT-91181 Sono pelvis non OB uterus ovaries cervix - XRAY USE ONLY 12:21:21 CDT
--- OUTSIDE RECORDS SUMMARY | 2019-08-08 07:53 | XMS REPORT | Clinical Summary ---
Author Author Admin, Carolyn KUMARI Organization [facility] Address Unknown Phone Unavailable Allergies, [...] then 7 days off-100mg PROGESTERONE MICRONIZED CREA 58670039753 Active Afia Lindo MD Active MICROGESTIN 06/10 1-20 MG-MCG ORAL TABS 1 tablet daily NORETHINDRONE ACET-ETHINYL EST 29274465020 Active Afia Lindo MD Active LEVOTHYROXINE SODIUM 75 MCG ORAL TABS 1 tablet daily LEVOTHYROXINE SODIUM 24796880968 Active Afia Lindo MD Active Vital Signs [...] Value Unit Range Description Lab Report: Chlamydia/GC APTIMA/42442, C ULTURE, URINE, ROUTINE - Lab chlamydia DNA probe NOT DETECTED NOT DETECTED Lab Report: Chlamydia/GC APTIMA/53714, C ULTURE, URINE, ROUTINE - Microbiology Neisseria gonorrhoeae DNA probe NOT DETECTED NO T DETECTED Encounters Code Encounter Date Provider Facility CPT-45969 Level 4 New Patient 12:04:05 CDT Afia sosa MD [facility] Procedures Code Procedure Name Date Entry Date Standard Desc ription CPT-40424 Sono pelvis non OB uterus ovaries cervix - XRAY USE ONLY 12:21:21 CDT
--- OUTSIDE RECORDS SUMMARY | 2019-08-08 07:53 | XMS REPORT | Clinical Summary ---
Author Author Admin, Carolyn KUMARI Organization [facility] Address Unknown Phone Unavailable Allergies, Adverse [...] pill by mouth daily 10/26 NORGESTIMATE-ETH ESTRADIOL 23379908206 Active Afia Lindo MD Active MICROGESTIN 20 1-20 MG-MCG ORAL TABLET 1 tablet daily NORETHINDRONE ACET-ETHINYL EST 45723163213 No Longer Active Afia Lindo MD Active PROGESTERONE MICRONIZED CREAM Apply 1/2 to 1ML on arms , chest and abdomen at bedtime day's 1- of cycle then 7 days off-100mg PROGESTERONE MICRONIZED CREA 16889901309 No Longer Active Afia Lindo MD Active LEVOTHYROXINE SODIUM 75 MCG ORAL TABLET 1 tablet daily LEVOTHYROXINE SODIUM 24903037397 Active Afia Lindo MD Act nova PROGESTERONE MICRONIZED CREAM Apply 1/2 to 1ML on arms , chest and abdomen at bedtime day's 1-21 of cycle then 7 days off-100mg PROGESTERONE MICRONIZED CREAM PROGESTERONE MICRONIZED CREA I nactive MICROGESTIN 1/20 1-20 MG-MCG ORAL TABLET 1 tablet daily MICROGESTIN 1/20 1-20 MG-MCG ORAL TABLET 3747886 NORETHINDRONE ACET- ETHINYL EST Inactive Advance Directives Directive Description Start Date PERMISSION TO SHARE Diagnostic Results Date Name Value Unit Range Description Lab Report: Chlamydia/GC APTIMA/44061 - Lab chlamydia DNA probe NOT DETECTED NOT DETECTED Lab Report: Chlamydia/GC APTIMA/49530 - Microbiology Neisseria gonorrhoeae DNA probe NOT DETECTED NO T DETECTED Encounters Code Encounter Date Provider Facility CPT-57906 Level 4 Est. Patient 15:26:22 CDT Afia mckinney MD [facility] CPT-19306 Level 3 Est. Patient 13:04:08 CDT Afia mckinney MD [facility] CPT-75067 Level 4 New Patient 12:04:05 CDT Afia sosa MD [facility] Procedures Code Procedure Name Date Entry Date Standard Desc ription CPT-70237 Prv Med New Pt 18-39 yrs 11:35:44 CDT 02/09 CPT-14801 Sono pelvis non OB uterus ovaries cervix - XRAY USE ONLY 12:21:21 CDT
--- OUTSIDE RECORDS SUMMARY | 2019-08-08 07:53 | XMS REPORT | Clinical Summary ---
Author Author Admin, Carolyn KUMARI Organization [facility] Address Unknown Phone Unavailable Allergies, Adverse Reactions, [...] then 7 days off-100mg PROGESTERONE MICRONIZED CREA 29802311987 Active Afia Lindo MD Active MICROGESTIN 06/10 1-20 MG-MCG ORAL TABS 1 tablet daily NORETHINDRONE ACET-ETHINYL EST 26564829361 Active Afia Lindo MD Active LEVOTHYROXINE SODIUM 75 MCG ORAL TABS 1 tablet daily LEVOTHYROXINE SODIUM 40018329812 Active Afia Lindo MD Active Vital Signs [...] Value Unit Range Description Lab Report: Chlamydia/GC APTIMA/44661, C ULTURE, URINE, ROUTINE - Lab chlamydia DNA probe NOT DETECTED NOT DETECTED Lab Report: Chlamydia/GC APTIMA/96054, C ULTURE, URINE, ROUTINE - Microbiology Neisseria gonorrhoeae DNA probe NOT DETECTED NO T DETECTED Encounters Code Encounter Date Provider Facility CPT-58862 Level 4 New Patient 12:04:05 CDT Afia sosa MD [facility] Procedures Code Procedure Name Date Entry Date Standard Desc ription CPT-19134 Sono pelvis non OB uterus ovaries cervix - XRAY USE ONLY 12:21:21 CDT
--- OUTSIDE RECORDS SUMMARY | 2019-08-08 07:53 | XMS REPORT | Clinical Summary ---
Author Author Admin, Carolyn KUMARI Organization [facility] Address Unknown Phone Unavailable Allergies, [...] Provider Patient Instruction SPRINTEC 28 0.25-35 MG-MCG TABS 1 pill by mouth daily NORGESTIMATE- ETH ESTRADIOL 36483767224 Active Afia Lindo MD Active MICROGESTIN 1/20 1-20 MG-MCG ORAL TABS 1 tablet daily NORETHINDRONE ACET-ETHINYL EST 74962098042 No Longer Active Afia Lindo MD Active PROGESTERONE MICRONIZED CREA Apply 1/2 to 1ML on arms, chest and abdomen at bedtime day's - of cycle then 7 days off-100mg PROGESTERONE MICRONIZED CREA 11168583798 No Longer Active Afia Lindo MD Active LEVOTHYROXINE SODIUM 75 MCG ORAL TABS 1 tablet daily LEVOTHYROXINE SODIUM 99124989065 Active Afia Lindo MD Active PROGESTERONE MICRONIZED CREA Apply 1/2 to 1ML on arms, chest and abdomen at bedtime day's - of cycle then 7 days off-100mg PROGESTERONE MICRONIZED CREA PROGESTERONE MICRONIZED CREA In active MICROGESTIN 1/20 1-20 MG-MCG ORAL TABS 1 tablet daily MICROGESTIN 20 1-20 MG-MCG ORAL TABS 2141744 NORETHINDRONE ACET-ET HINYL EST Inactive Advance Directives Directive Description Start Date PERMISSION TO SHARE Vital Signs Date Name Value Unit Range Description blood pressure, diastolic 73 mm[Hg] BP [place] blood pressure, systolic 107 mm[Hg] BP sys pulse rate E&M 60 /min Heart rate temperature E&M 98 [degF] Body temp erature weight E&M 157.2 [lb_av] Weight Measure d blood pressure, diastolic 79 mm[Hg] BP [place] blood pressure, systolic 121 mm[Hg] BP sys height E&M 69 [in_us] Bdy height pulse rate E&M 71 /min Heart rate temperature E&M 98.0 [degF] Body temp erature weight E&M 155.0 [lb_av] Weight Measure d blood pressure, diastolic 88 mm[Hg] BP [place] blood pressure, systolic 137 mm[Hg] BP sys height E&M 69 [in_us] Bdy height pulse rate E&M 75 /min Heart rate temperature E&M 99.3 [degF] Body temp erature weight E&M 158 [lb_av] Weight Measure d Diagnostic Results Date Name Value Unit Range Description Lab Report: Chlamydia/GC APTIMA/35712, C ULTURE, URINE, ROUTINE - Lab chlamydia DNA probe NOT DETECTED NOT DETECTED Lab Report: Chlamydia/GC APTIMA/57072, C ULTURE, URINE, ROUTINE - Microbiology Neisseria gonorrhoeae DNA probe NOT DETECTED NO T DETECTED Encounters Code Encounter Date Provider Facility CPT-32063 Level 4 Est. Patient 15:26:22 CDT Afia mckinney MD [facility] CPT-18111 Level 3 Est. Patient 13:04:08 CDT Afia mckinney MD [facility] CPT-94994 Level 4 New Patient 12:04:05 CDT [address] [facility] Procedures Code Procedure Name Date Entry Date Standard Desc ription CPT-90641 Sono pelvis non OB uterus ovaries cervix - XRAY USE ONLY 12:21:21 CDT
--- OUTSIDE RECORDS SUMMARY | 2019-08-08 07:53 | XMS REPORT | Clinical Summary ---
Author Author Admin, Carolyn KUMARI Organization [facility] Address Unknown Phone Unavailable Allergies, Adverse [...] pill by mouth daily NORGESTIMATE- ETH ESTRADIOL 56074860444 Active Afia Lindo MD Active MICROGESTIN 1/20 1-20 MG-MCG ORAL TABS 1 tablet daily NORETHINDRONE ACET-ETHINYL EST 25068442703 No Longer Active Afia Lindo MD Active PROGESTERONE MICRONIZED CREA Apply 1/2 to 1ML on arms, chest and abdomen at bedtime day's - of cycle then 7 days off-100mg PROGESTERONE MICRONIZED CREA 55546594013 No Longer Active Afia Lindo MD Active LEVOTHYROXINE SODIUM 75 MCG ORAL TABS 1 tablet daily LEVOTHYROXINE SODIUM 41610396961 Active Afia Lindo MD Active PROGESTERONE MICRONIZED CREA Apply 1/2 to 1ML on arms, chest and abdomen at bedtime day's - of cycle then 7 days off-100mg PROGESTERONE MICRONIZED CREA PROGESTERONE MICRONIZED CREA In active MICROGESTIN 1/20 1-20 MG-MCG ORAL TABS 1 tablet daily MICROGESTIN 20 1-20 MG-MCG ORAL TABS 2838028 NORETHINDRONE ACET-ET HINYL EST Inactive Advance Directives [...] Value Unit Range Description Lab Report: Chlamydia/GC APTIMA/61283, C ULTURE, URINE, ROUTINE - Lab chlamydia DNA probe NOT DETECTED NOT DETECTED Lab Report: Chlamydia/GC APTIMA/87014, C ULTURE, URINE, ROUTINE - Microbiology Neisseria gonorrhoeae DNA probe NOT DETECTED NO T DETECTED Encounters Code Encounter Date Provider Facility CPT-90528 Level 4 Est. Patient 15:26:22 CDT Afia mckinney MD [facility] CPT-07491 Level 3 Est. Patient 13:04:08 CDT Afia mckinney MD [facility] CPT-67243 Level 4 New Patient 12:04:05 CDT Afia sosa MD [facility] Procedures Code Procedure Name Date Entry Date Standard Desc ription CPT-13668 Sono pelvis non OB uterus ovaries cervix - XRAY USE ONLY 12:21:21 CDT
--- OUTSIDE RECORDS SUMMARY | 2019-08-08 07:53 | XMS REPORT | Clinical Summary ---
Author Author Admin, Carolyn KUMARI Organization [facility] Address Unknown Phone Unavailable Allergies, [...] then 7 days off-100mg PROGESTERONE MICRONIZED CREA 93362180539 Active Afia Lindo MD Active MICROGESTIN 06/10 1-20 MG-MCG ORAL TABS 1 tablet daily NORETHINDRONE ACET-ETHINYL EST 91658860440 Active Afia Lindo MD Active LEVOTHYROXINE SODIUM 75 MCG ORAL TABS 1 tablet daily LEVOTHYROXINE SODIUM 82454706382 Active Afia Lindo MD Active Vital Signs [...] Value Unit Range Description Lab Report: Chlamydia/GC APTIMA/35394, C ULTURE, URINE, ROUTINE - Lab chlamydia DNA probe NOT DETECTED NOT DETECTED Lab Report: Chlamydia/GC APTIMA/62031, C ULTURE, URINE, ROUTINE - Microbiology Neisseria gonorrhoeae DNA probe NOT DETECTED NO T DETECTED Encounters Code Encounter Date Provider Facility CPT-61907 Level 4 New Patient 12:04:05 CDT Afia sosa MD [facility] Procedures Code Procedure Name Date Entry Date Standard Desc ription CPT-96532 Sono pelvis non OB uterus ovaries cervix - XRAY USE ONLY 12:21:21 CDT
--- OUTSIDE RECORDS SUMMARY | 2019-08-08 07:53 | XMS REPORT | Clinical Summary ---
Author Author Admin, Carolyn KUMARI Organization [facility] Address Unknown Phone Unavailable Allergies, Adverse [...] then 7 days off-100mg PROGESTERONE MICRONIZED CREA 98458575700 Active Afia Lindo MD Active MICROGESTIN 06/10 1-20 MG-MCG ORAL TABS 1 tablet daily NORETHINDRONE ACET-ETHINYL EST 00609957422 Active Afia Lindo MD Active LEVOTHYROXINE SODIUM 75 MCG ORAL TABS 1 tablet daily LEVOTHYROXINE SODIUM 93559040835 Active Afia Lindo MD Active Vital Signs [...] Value Unit Range Description Lab Report: Chlamydia/GC APTIMA/15454, C ULTURE, URINE, ROUTINE - Lab chlamydia DNA probe NOT DETECTED NOT DETECTED Lab Report: Chlamydia/GC APTIMA/02872, C ULTURE, URINE, ROUTINE - Microbiology Neisseria gonorrhoeae DNA probe NOT DETECTED NO T DETECTED Encounters Code Encounter Date Provider Facility CPT-56602 Level 4 New Patient 12:04:05 CDT Afia sosa MD [facility] Procedures Code Procedure Name Date Entry Date Standard Desc ription CPT-58128 Sono pelvis non OB uterus ovaries cervix - XRAY USE ONLY 12:21:21 CDT
--- OUTSIDE RECORDS SUMMARY | 2019-08-08 07:53 | XMS REPORT | Clinical Summary ---
Author Author Admin, Carolyn KUMARI Organization [facility] Address Unknown Phone Unavailable Allergies, Adverse Reactions, [...] pill by mouth daily NORGESTIMATE- ETH ESTRADIOL 98768493422 Active Afia Lindo MD Active MICROGESTIN 1/20 1-20 MG-MCG ORAL TABS 1 tablet daily NORETHINDRONE ACET-ETHINYL EST 60165800310 No Longer Active Afia Lindo MD Active PROGESTERONE MICRONIZED CREA Apply 1/2 to 1ML on arms, chest and abdomen at bedtime day's - of cycle then 7 days off-100mg PROGESTERONE MICRONIZED CREA 33767691366 No Longer Active Afia Lindo MD Active LEVOTHYROXINE SODIUM 75 MCG ORAL TABS 1 tablet daily LEVOTHYROXINE SODIUM 77053014249 Active Afia Lindo MD Active PROGESTERONE MICRONIZED CREA Apply 1/2 to 1ML on arms, chest and abdomen at bedtime day's - of cycle then 7 days off-100mg PROGESTERONE MICRONIZED CREA PROGESTERONE MICRONIZED CREA In active MICROGESTIN 1/20 1-20 MG-MCG ORAL TABS 1 tablet daily MICROGESTIN 20 1-20 MG-MCG ORAL TABS 1451118 NORETHINDRONE ACET-ET HINYL EST Inactive Vital Signs Date Name Value Unit Range Description blood pressure, diastolic - 8462-4 79 mm[Hg] BP hargrove blood pressure, systolic - 8480-6 121 mm[Hg] BP sys height E&M - 8302-2 69 [in_us] Bdy h eight pulse rate E&M - 8867-4 71 /min H eart rate temperature E&M 98.0 [degF] Body temp erature weight E&M - 3141-9 155.0 [lb_av] Weigh t Measured blood pressure, diastolic - 8462-4 88 mm[Hg] [...] Value Unit Range Description Lab Report: Chlamydia/GC APTIMA/21953, C ULTURE, URINE, ROUTINE - Lab chlamydia DNA probe NOT DETECTED NOT DETECTED Lab Report: Chlamydia/GC APTIMA/01306, C ULTURE, URINE, ROUTINE - Microbiology Neisseria gonorrhoeae DNA probe NOT DETECTED NO T DETECTED Encounters Code Encounter Date Provider Facility CPT-03072 Level 3 Est. Patient 13:04:08 CDT Afia mckinney MD [facility] CPT-73541 Level 4 New Patient 12:04:05 CDT Afia sosa MD [facility] Procedures Code Procedure Name Date Entry Date Standard Desc ription CPT-50570 Sono pelvis non OB uterus ovaries cervix - XRAY USE ONLY 12:21:21 CDT
--- OUTSIDE RECORDS SUMMARY | 2019-08-08 07:53 | XMS REPORT | Clinical Summary ---
Author Author Admin, Carolyn KUMARI Organization [facility] Address Unknown Phone Unavailable Allergies, Adverse [...] pill by mouth daily NORGESTIMATE- ETH ESTRADIOL 54619014134 Active Afia Lindo MD Active MICROGESTIN 1/20 1-20 MG-MCG ORAL TABS 1 tablet daily NORETHINDRONE ACET-ETHINYL EST 15562900414 No Longer Active Afia Lindo MD Active PROGESTERONE MICRONIZED CREA Apply 1/2 to 1ML on arms, chest and abdomen at bedtime day's - of cycle then 7 days off-100mg PROGESTERONE MICRONIZED CREA 30718506539 No Longer Active Afia Lindo MD Active LEVOTHYROXINE SODIUM 75 MCG ORAL TABS 1 tablet daily LEVOTHYROXINE SODIUM 09307337823 Active Afia Lindo MD Active PROGESTERONE MICRONIZED CREA Apply 1/2 to 1ML on arms, chest and abdomen at bedtime day's - of cycle then 7 days off-100mg PROGESTERONE MICRONIZED CREA PROGESTERONE MICRONIZED CREA In active MICROGESTIN 1/20 1-20 MG-MCG ORAL TABS 1 tablet daily MICROGESTIN 20 1-20 MG-MCG ORAL TABS 8704806 NORETHINDRONE ACET-ET HINYL EST Inactive Advance Directives [...] Value Unit Range Description Lab Report: Chlamydia/GC APTIMA/14387, C ULTURE, URINE, ROUTINE - Lab chlamydia DNA probe NOT DETECTED NOT DETECTED Lab Report: Chlamydia/GC APTIMA/53991, C ULTURE, URINE, ROUTINE - Microbiology Neisseria gonorrhoeae DNA probe NOT DETECTED NO T DETECTED Encounters Code Encounter Date Provider Facility CPT-83891 Level 4 Est. Patient 15:26:22 CDT Afia mckinney MD [facility] CPT-96516 Level 3 Est. Patient 13:04:08 CDT Afia mckinney MD [facility] CPT-52998 Level 4 New Patient 12:04:05 CDT Afia sosa MD [facility] Procedures Code Procedure Name Date Entry Date Standard Desc ription CPT-95952 Sono pelvis non OB uterus ovaries cervix - XRAY USE ONLY 12:21:21 CDT
--- OUTSIDE RECORDS SUMMARY | 2019-08-08 07:53 | XMS REPORT | Clinical Summary ---
Author Author Admin, Caorlyn KUMARI Organization [facility] Address Unknown Phone Unavailable Allergies, Adverse Reactions, [...] then 7 days off-100mg PROGESTERONE MICRONIZED CREA 87814341806 Active Afia Lindo MD Active MICROGESTIN 06/10 1-20 MG-MCG ORAL TABS 1 tablet daily NORETHINDRONE ACET-ETHINYL EST 42108783219 Active Afia Lindo MD Active LEVOTHYROXINE SODIUM 75 MCG ORAL TABS 1 tablet daily LEVOTHYROXINE SODIUM 13238342083 Active Afia Lindo MD Active Vital Signs [...] Value Unit Range Description Lab Report: Chlamydia/GC APTIMA/63720, C ULTURE, URINE, ROUTINE - Lab chlamydia DNA probe NOT DETECTED NOT DETECTED Lab Report: Chlamydia/GC APTIMA/47239, C ULTURE, URINE, ROUTINE - Microbiology Neisseria gonorrhoeae DNA probe NOT DETECTED NO T DETECTED Encounters Code Encounter Date Provider Facility CPT-17439 Level 4 New Patient 12:04:05 CDT Afia sosa MD [facility]
--- OUTSIDE RECORDS SUMMARY | 2019-08-08 07:54 | XMS REPORT ---
Author Author Carolyn JIMÉNEZ [facility] eClinical[employer] Address Unknown Phone Unavailable Care Team Providers Care Social Work Job Titles Name Role Phone SANDY JIMÉNEZ CP Unavailable Allergies No Known Allergies Problems Problem Type Condition ICD-9 Code Onset Dates Condition Statu s Assessment GARDASIL (HPV) DX V04.89 Active Problem Other general medical examination for administrative p urposes V70.3 Active Medications No Known Medications Procedures Procedure Coding System Code Date SINGLE IMMUNIZATION ADMIN CPT-4 64036 Jan 202014 GARDISIL 9 CPT-4 71597 Feb 05, 2015 Results No Known Results Immunizations Vaccine Administration Date GARDISIL 9 Feb 05, 2015 Summary Purpose eClinicalWorks Submission
--- OUTSIDE RECORDS SUMMARY | 2019-08-08 07:54 | XMS REPORT | Clinical Summary ---
[...] pill by mouth daily NORGESTIMATE- ETH ESTRADIOL 40013658596 Active Afia Lindo MD Active MICROGESTIN 1/20 1-20 MG-MCG ORAL TABS 1 tablet daily NORETHINDRONE ACET-ETHINYL EST 34519124836 No Longer Active Afia Lindo MD Active PROGESTERONE MICRONIZED CREA Apply 1/2 to 1ML on arms, chest and abdomen at bedtime day's - of cycle then 7 days off-100mg PROGESTERONE MICRONIZED CREA 06017093057 No Longer Active Afia Lindo MD Active LEVOTHYROXINE SODIUM 75 MCG ORAL TABS 1 tablet daily LEVOTHYROXINE SODIUM 99248987480 Active Afia Lindo MD Active PROGESTERONE MICRONIZED CREA Apply 1/2 to 1ML on arms, chest and abdomen at bedtime day's - of cycle then 7 days off-100mg PROGESTERONE MICRONIZED CREA PROGESTERONE MICRONIZED CREA In active MICROGESTIN 1/20 1-20 MG-MCG ORAL TABS 1 tablet daily MICROGESTIN 20 1-20 MG-MCG ORAL TABS 2109281 NORETHINDRONE ACET-ET HINYL EST Inactive Vital Signs [...] Value Unit Range Description Lab Report: Chlamydia/GC APTIMA/28216, C ULTURE, URINE, ROUTINE - Lab chlamydia DNA probe NOT DETECTED NOT DETECTED Lab Report: Chlamydia/GC APTIMA/23870, C ULTURE, URINE, ROUTINE - Microbiology Neisseria gonorrhoeae DNA probe NOT DETECTED NO T DETECTED Encounters Code Encounter Date Provider Facility CPT-68054 Level 3 Est. Patient 13:04:08 CDT Afia mckinney MD [facility] CPT-93321 Level 4 New Patient 12:04:05 CDT Afia sosa MD [facility] Procedures Code Procedure Name Date Entry Date Standard Desc ription CPT-93399 Sono pelvis non OB uterus ovaries cervix - XRAY USE ONLY 12:21:21 CDT
--- OUTSIDE RECORDS SUMMARY | 2019-08-08 07:54 | XMS REPORT | Continuity of Care Document ---
Author Organization Unknown Address Unknown Phone Unavailable Allergies Active Description Code Type Severity Reaction Onset Reported/Identified Relationship to Patient Clinical Status Yes NKDA N/A N/ A Yes No Known Drug Allergies [id number] Drug Allergy Unknown N/A 07/30/2019 Medications There is no data. 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 02/09/2018 Guicho WHITAKER, Carmelo E03.9 Hypothyroidism 02/09/2018 Guicho WHITAKER, Carmelo Z01.419 WELL WOMAN EXAMINATION 02/28/2018 MARIA ESTHER LEE DO Ot E03.9 HYPOTHYROIDISM, UNSPECIFIED 02/28/2018 MARIA ESTHER LEE DO Ot N92.6 IRREGULAR MENSTRUATION, UNSPECIFIED 02/28/2018 MARIA ESTHER LEE DO Ot Z79.899 OTHER SNF (CURRENT) DRUG THERAPY 03/02/2018 NELLIE ANDREW Manohar WITT Ot E03.9 HYPOTHYROIDISM, UNSPECIFIED 03/19/2018 NELLIE ANDREW Manohar WITT Ot E03.9 HYPOTHYROIDISM, UNSPECIFIED 04/05/2018 NELLIE ANDREW Manohar WITT Ot E03.9 HYPOTHYROIDISM, UNSPECIFIED 04/20/2018 NELLIE ANDREW Manohar WITT Ot E03.9 HYPOTHYROIDISM, UNSPECIFIED 12/24/2018 MARIA ESTHER LEE DO Ot E03.9 HYPOTHYROIDISM, UNSPECIFIED 12/24/2018 MARIA ESTHER LEE DO Ot N92.6 IRREGULAR MENSTRUATION, UNSPECIFIED 12/24/2018 MARIA ESTHER LEE DO Ot Z79.899 OTHER SNF (CURRENT) DRUG THERAPY 12/24/2018 MARIA ESTHER LEE DO Ot E03.9 HYPOTHYROIDISM, UNSPECIFIED 12/24/2018 LEE DO, MARIA ESTHER Ballesteros Ot N92.6 IRREGULAR MENSTRUATION, UNSPECIFIED 12/24/2018 LEE DO, MARIA ESTHER Ballesteros Ot Z79.899 OTHER SNF (CURRENT) DRUG THERAPY 12/24/2018 LEE DO, MARIA ESTHER Ballesteros Ot E03.9 HYPOTHYROIDISM, UNSPECIFIED 12/24/2018 LEE DO, MARIA ESTHER Ballesteros Ot N92.6 IRREGULAR MENSTRUATION, UNSPECIFIED 12/24/2018 LEE DO, MARIA ESTHER Ballesteros Ot Z79.899 OTHER SNF (CURRENT) DRUG THERAPY 12/27/2018 LEE DO, MARIA ESTHER Ballesteros Ot E03.9 HYPOTHYROIDISM, UNSPECIFIED 12/27/2018 LEE DO, MARIA ESTHER Ballesteros Ot N92.6 IRREGULAR MENSTRUATION, UNSPECIFIED 12/27/2018 LEE DO, MARIA ESTHER Ballesteros Ot Z79.899 OTHER SNF (CURRENT) DRUG THERAPY 01/10/2019 JESUS DO, MARIA ESTHER Ballesteros Ot E03.9 HYPOTHYROIDISM, UNSPECIFIED 01/10/2019 LEE DO, MARIA ESTHER Ballesteros Ot N92.6 IRREGULAR MENSTRUATION, UNSPECIFIED 01/10/2019 LEE DO, MARIA ESTHER Ballesteros Ot Z79.899 OTHER SNF (CURRENT) DRUG THERAPY 02/15/2019 Guicho WHITAKER, Carmelo Z30.41 Contraceptive pill surveillance 02/15/2019 Guicho WHITAKER, Carmelo E66.3 Overweight (BMI 25-29.9) 02/15/2019 Guicho WHITAKER, Carmelo Z68.27 BMI 27-27.9 02/27/2019 MARIA ESTHER LEE DO Ot E03.9 HYPOTHYROIDISM, UNSPECIFIED 02/27/2019 LEE DOMARIA ESTHER Ot N92.6 IRREGULAR MENSTRUATION, UNSPECIFIED 02/27/2019 LEE DO, MARIA ESTHER Ballesteros Ot Z79.899 OTHER SNF (CURRENT) DRUG THERAPY 02/28/2019 JESUS DO, MARIA ESTHER Ballesteros Ot E03.9 HYPOTHYROIDISM, UNSPECIFIED 02/28/2019 LEE DO, MARIA ESTHER Ballesteros Ot N92.6 IRREGULAR MENSTRUATION, UNSPECIFIED 02/28/2019 LEE DO, MARIA ESTHER Ballesteros Ot Z79.899 OTHER SNF (CURRENT) DRUG THERAPY 03/04/2019 JESUS DO, MARIA ESTHER Ballesteros Ot E03.9 HYPOTHYROIDISM, UNSPECIFIED 03/04/2019 LEE DO, MARIA ESTHER J Ot N92.6 IRREGULAR MENSTRUATION, UNSPECIFIED 03/04/2019 LEE DO, MARIA ESTHER J Ot Z79.899 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 03/04/2019 ANDREW BALLARD CASTING CHIPPER Ot E03.9 HYPOTHYROIDISM, UNSPECIFIED 03/04/2019 ANDREW BALLARD CASTING CHIPPER Ot E03.9 HYPOTHYROIDISM, UNSPECIFIED 03/04/2019 LEE DO, MARIA ESTHER J Ot E03.9 HYPOTHYROIDISM, UNSPECIFIED 03/04/2019 LEE DO, MARIA ESTHER J Ot N92.6 IRREGULAR MENSTRUATION, UNSPECIFIED 03/04/2019 LEE DO, MARIA ESTHER J Ot Z79.899 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 03/04/2019 ANDREW BALLARD CASTING CHIPPER Ot E03.9 HYPOTHYROIDISM, UNSPECIFIED 03/04/2019 ANDREW BALLARD CASTING CHIPPER Ot E03.9 HYPOTHYROIDISM, UNSPECIFIED 05/09/2019 LEE DO, MARIA ESTHER J Ot E03.9 HYPOTHYROIDISM, UNSPECIFIED 05/09/2019 LEE DO, MARIA ESTHER J Ot N92.6 IRREGULAR MENSTRUATION, UNSPECIFIED 05/09/2019 LEE DO, MARIA ESTHER J Ot Z79.899 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 Procedures There is no data. Results Test Result Range Complete blood count (CBC) with automate d white blood cell (WBC) differential - 01/31/18 07:25 Blood leukocytes automated count (number/volume) 6.0 10*3/uL 4.3-11.0 Blood erythrocytes automated count (number/volume) 4.37 10*6/uL 4.35-5.85 Venous blood hemoglobin measurement (mass/volume) 13.5 g/dL 11.5-16.0 Blood hematocrit (volume fraction) 40 % 35-52 Automated erythrocyte mean corpuscular volume 92 [ foz_us] 80-99 Automated erythrocyte mean corpuscular h emoglobin (mass per erythrocyte) 31 pg 25-34 Automated erythrocyte mean corpuscular h emoglobin concentration measurement (mass/volume) 34 g/dL 32-36 Automated erythrocyte distribution width ratio 12. 4 % 10.0- 14.5 Automated blood platelet count (count/volume) 264 10*3/uL 130-400 Automated blood platelet mean volume measurement 10.3 [foz_us] 7.4-10.4 Automated blood neutrophils/100 leukocytes 54 % 42-75 Automated blood lymphocytes/100 leukocytes 34 % 12-44 Blood monocytes/100 leukocytes 9 % 0-12 Automated blood eosinophils/100 leukocytes 3 % 0-10 Automated blood basophils/100 leukocytes 1 % 0-10 Blood neutrophils automated count (number/volume) 3.2 10*3 1.8-7.8 Blood lymphocytes automated count (number/volume) 2.0 10*3 1.0-4.0 Blood monocytes automated count (number/volume) 0. 6 10*3 0.0-1.0 Automated eosinophil count 0.2 10*3/uL 0 .0-0.3 Automated blood basophil count (count/volume) 0.0 10*3/uL 0.0-0.1 Comprehensive metabolic panel - 01/31/18 07:25 Serum or plasma sodium measurement (moles/volume) 135 mmol/L 135-145 Serum or plasma potassium measurement (moles/volume) 3.8 mmol/L 3.6-5.0 Serum or plasma chloride measurement (moles/volume) 104 mmol/L 98-107 Carbon dioxide 22 mmol/L 21-32 Serum or plasma anion gap determination (moles/volume) 9 mmol/L 5-14 Serum or plasma urea nitrogen measurement (mass/volume ) 9 mg/dL 7-18 Serum or plasma creatinine measurement (mass/volume) 0.77 mg/dL 0.60-1.30 Serum or plasma urea nitrogen/creatinine mass ratio 12 NRG Serum or plasma creatinine measurement w ith calculation of estimated glomerular filtration rate > NRG Serum or plasma glucose measurement (mass/volume) 82 mg/dL 70-105 Serum or plasma calcium measurement (mass/volume) 9.5 mg/dL 8.5-10.1 Serum or plasma total bilirubin measurement (mass/volu me) 0.5 mg/dL 0.1-1.0 Serum or plasma alkaline phosphatase gertrude surement (enzymatic activity/volume) 57 U/L 40-136 Serum or plasma aspartate aminotransfera se measurement (enzymatic activity/volume) 33 U/L 5-34 Serum or plasma alanine aminotransferase measurement (enzymatic activity/volume) 30 U/L 0-55 Serum or plasma protein measurement (mass/volume) 7.1 g/dL 6.4-8.2 Serum or plasma albumin measurement (mass/volume) 4.4 g/dL 3.2-4.5 CALCIUM CORRECTED 9.2 mg/dL 8.5-10.1 THYROID STIMULATING HORMONE - 01/31/18 0 7:25 THYROID STIMULATING HORMONE 8.33 u[iU]/mL 0.35-4.94 Serum or plasma thyroxine (T4) free tracee urement (mass/volume) - 01/31/18 07:25 Serum or plasma thyroxine (T4) free measurement (mass/ volume) 1.15 ng/dL 0.70-1.48 Serum or plasma estradiol (E2) measureme nt (mass/volume) - 01/31/18 07:25 Serum or plasma estradiol (E2) measurement (mass/volum e) 242 pg/mL NRG Serum or plasma progesterone measurement (mass/volume) - 01/31/18 07:25 Serum or plasma progesterone measurement (mass/volume) 5.25 % NRG TRIIODOTHRYONINE T3 FREE - 01/31/18 07:2 5 TRIIODOTHYRONINE T3 FREE 3.37 pg/mL 1.71 -3.71 TESTOSTERONE TOT FEMAL T CHILD - 8 07:25 Testosterone [mass or moles/volume] in serum or plasma 56.1 % 9.0-55.0 THYROID STIMULATING HORMONE - 04/03/18 0 8:48 THYROID STIMULATING HORMONE 2.73 u[iU]/mL 0.35-4.94 Serum or plasma thyroxine (T4) free tracee urement (mass/volume) - 04/03/18 08:48 Serum or plasma thyroxine (T4) free measurement (mass/ volume) 1.36 ng/dL 0.70-1.48 TRIIODOTHRYONINE T3 FREE - 04/03/18 08:4 8 TRIIODOTHYRONINE T3 FREE 3.68 pg/mL 1.71 -3.71 Encounters ACCT No. Visit Date/Time Discharge Status Pt. 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 [facility] RAD MULTI NODULAR GOITER [id number] 04/03/2018 08:21:00 23:59:59 CLS Outpatient ANDREW BALLARD CASTING CHIPPER [facility] LAB HYPOTHROID [id number] 03/01/2018 07:44:00 23:59:59 CLS Outpatient ANDREW BALLARD CASTING CHIPPER [facility] RAD HYPOTHYROID [id number] 01/31/2018 07:05:00 23:59:59 CLS Outpatient MARIA ESTHER LEE DO [facility] LAB Z79.899 N92.6 E 03.9 [id number] 08/08/2019 09:45:00 P CAREY ROMANO MD, [facility] ADENOTONSILLAR HYPERTROPHY [id number] 10/03/2016 12:43:34 23:59:59 CLS Outpatient CARMELO LINDO [facility] LAB [facility] labwor k [id number] 03/29/2019 13:38:01 ACT Unknown Carmelo Lindo MD [id number] 12/14/2015 12:09:00 Document Registration [id number] 01/28/2014 18:31:38 Document Registration [email or web address] 04/13/2019 11:53:52 ACT Document Registration
--- OUTSIDE RECORDS SUMMARY | 2019-08-08 07:54 | XMS REPORT | Clinical Summary ---
Author Author Admin, Carolyn KUMARI Organization [facility] Address Unknown Phone Unavailable Allergies, [...] pill by mouth daily NORGESTIMATE- ETH ESTRADIOL 13818222551 Active Afia Lindo MD Active MICROGESTIN 1/20 1-20 MG-MCG ORAL TABS 1 tablet daily NORETHINDRONE ACET-ETHINYL EST 31091484338 No Longer Active Afia Lindo MD Active PROGESTERONE MICRONIZED CREA Apply 1/2 to 1ML on arms, chest and abdomen at bedtime day's - of cycle then 7 days off-100mg PROGESTERONE MICRONIZED CREA 08817998082 No Longer Active Afia Lindo MD Active LEVOTHYROXINE SODIUM 75 MCG ORAL TABS 1 tablet daily LEVOTHYROXINE SODIUM 21292296096 Active Afia Lindo MD Active PROGESTERONE MICRONIZED CREA Apply 1/2 to 1ML on arms, chest and abdomen at bedtime day's - of cycle then 7 days off-100mg PROGESTERONE MICRONIZED CREA PROGESTERONE MICRONIZED CREA In active MICROGESTIN 1/20 1-20 MG-MCG ORAL TABS 1 tablet daily MICROGESTIN 20 1-20 MG-MCG ORAL TABS 2994509 NORETHINDRONE ACET-ET HINYL EST Inactive Vital Signs Date Name Value Unit Range Description blood pressure, diastolic 79 mm[Hg] BP hargrove [...] Value Unit Range Description Lab Report: Chlamydia/GC APTIMA/32736, C ULTURE, URINE, ROUTINE - Lab chlamydia DNA probe NOT DETECTED NOT DETECTED Lab Report: Chlamydia/GC APTIMA/75935, C ULTURE, URINE, ROUTINE - Microbiology Neisseria gonorrhoeae DNA probe NOT DETECTED NO T DETECTED Encounters Code Encounter Date Provider Facility CPT-17907 Level 3 Est. Patient 13:04:08 CDT Afia mckinney MD [facility] CPT-20954 Level 4 New Patient 12:04:05 CDT Afia sosa MD [facility] Procedures Code Procedure Name Date Entry Date Standard Desc ription CPT-70480 Sono pelvis non OB uterus ovaries cervix - XRAY USE ONLY 12:21:21 CDT
--- OUTSIDE RECORDS SUMMARY | 2019-08-08 07:54 | XMS REPORT | Clinical Summary ---
Author Author Admin, Carolyn KUMARI Organization [facility] Address Unknown Phone Unavailable Allergies, Adverse Reactions, [...] pill by mouth daily NORGESTIMATE- ETH ESTRADIOL 42203804294 Active Afia Lindo MD Active MICROGESTIN 1/20 1-20 MG-MCG ORAL TABS 1 tablet daily NORETHINDRONE ACET-ETHINYL EST 53930827021 No Longer Active Afia Lindo MD Active PROGESTERONE MICRONIZED CREA Apply 1/2 to 1ML on arms, chest and abdomen at bedtime day's - of cycle then 7 days off-100mg PROGESTERONE MICRONIZED CREA 79973346313 No Longer Active Afia Lindo MD Active LEVOTHYROXINE SODIUM 75 MCG ORAL TABS 1 tablet daily LEVOTHYROXINE SODIUM 76171833236 Active Afia Lindo MD Active PROGESTERONE MICRONIZED CREA Apply 1/2 to 1ML on arms, chest and abdomen at bedtime day's - of cycle then 7 days off-100mg PROGESTERONE MICRONIZED CREA PROGESTERONE MICRONIZED CREA In active MICROGESTIN 1/20 1-20 MG-MCG ORAL TABS 1 tablet daily MICROGESTIN 20 1-20 MG-MCG ORAL TABS 3549090 NORETHINDRONE ACET-ET HINYL EST Inactive Vital Signs [...] Value Unit Range Description Lab Report: Chlamydia/GC APTIMA/98219, C ULTURE, URINE, ROUTINE - Lab chlamydia DNA probe NOT DETECTED NOT DETECTED Lab Report: Chlamydia/GC APTIMA/67580, C ULTURE, URINE, ROUTINE - Microbiology Neisseria gonorrhoeae DNA probe NOT DETECTED NO T DETECTED Encounters Code Encounter Date Provider Facility CPT-88747 Level 3 Est. Patient 13:04:08 CDT Afia mckinney MD [facility] CPT-59409 Level 4 New Patient 12:04:05 CDT Afia sosa MD [facility] Procedures Code Procedure Name Date Entry Date Standard Desc ription CPT-88961 Sono pelvis non OB uterus ovaries cervix - XRAY USE ONLY 12:21:21 CDT
--- OUTSIDE RECORDS SUMMARY | 2019-08-08 07:54 | XMS REPORT | Clinical Summary ---
[...] pill by mouth daily NORGESTIMATE- ETH ESTRADIOL 55069710997 Active Afia Lindo MD Active MICROGESTIN 1/20 1-20 MG-MCG ORAL TABS 1 tablet daily NORETHINDRONE ACET-ETHINYL EST 72284031520 No Longer Active Afia Lindo MD Active PROGESTERONE MICRONIZED CREA Apply 1/2 to 1ML on arms, chest and abdomen at bedtime day's - of cycle then 7 days off-100mg PROGESTERONE MICRONIZED CREA 11018900155 No Longer Active Afia Lindo MD Active LEVOTHYROXINE SODIUM 75 MCG ORAL TABS 1 tablet daily LEVOTHYROXINE SODIUM 24069855697 Active Afia Lindo MD Active PROGESTERONE MICRONIZED CREA Apply 1/2 to 1ML on arms, chest and abdomen at bedtime day's - of cycle then 7 days off-100mg PROGESTERONE MICRONIZED CREA PROGESTERONE MICRONIZED CREA In active MICROGESTIN 1/20 1-20 MG-MCG ORAL TABS 1 tablet daily MICROGESTIN 20 1-20 MG-MCG ORAL TABS 7473372 NORETHINDRONE ACET-ET HINYL EST Inactive Advance Directives [...] Value Unit Range Description Lab Report: Chlamydia/GC APTIMA/51744, C ULTURE, URINE, ROUTINE - Lab chlamydia DNA probe NOT DETECTED NOT DETECTED Lab Report: Chlamydia/GC APTIMA/51467, C ULTURE, URINE, ROUTINE - Microbiology Neisseria gonorrhoeae DNA probe NOT DETECTED NO T DETECTED Encounters Code Encounter Date Provider Facility CPT-20592 Level 4 Est. Patient 15:26:22 CDT Afia mckinney MD [facility] CPT-26179 Level 3 Est. Patient 13:04:08 CDT Afia mckinney MD [facility] CPT-57611 Level 4 New Patient 12:04:05 CDT Afia sosa MD [facility] Procedures Code Procedure Name Date Entry Date Standard Desc ription CPT-03951 Sono pelvis non OB uterus ovaries cervix - XRAY USE ONLY 12:21:21 CDT
--- OUTSIDE RECORDS SUMMARY | 2019-08-08 07:54 | XMS REPORT | Clinical Summary ---
Author Author Admin, Carolyn KUMARI Organization [facility] Address Unknown Phone Unavailable Allergies, Adverse Reactions, [...] pill by mouth daily NORGESTIMATE- ETH ESTRADIOL 34395368394 Active Afia Lindo MD Active MICROGESTIN 1/20 1-20 MG-MCG ORAL TABS 1 tablet daily NORETHINDRONE ACET-ETHINYL EST 80929487793 No Longer Active Afia Lindo MD Active PROGESTERONE MICRONIZED CREA Apply 1/2 to 1ML on arms, chest and abdomen at bedtime day's - of cycle then 7 days off-100mg PROGESTERONE MICRONIZED CREA 48848766957 No Longer Active Afia Lindo MD Active LEVOTHYROXINE SODIUM 75 MCG ORAL TABS 1 tablet daily LEVOTHYROXINE SODIUM 94955542903 Active Afia Lindo MD Active PROGESTERONE MICRONIZED CREA Apply 1/2 to 1ML on arms, chest and abdomen at bedtime day's - of cycle then 7 days off-100mg PROGESTERONE MICRONIZED CREA PROGESTERONE MICRONIZED CREA In active MICROGESTIN 1/20 1-20 MG-MCG ORAL TABS 1 tablet daily MICROGESTIN 20 1-20 MG-MCG ORAL TABS [id number] NORETHINDRONE ACET-ET HINYL EST Inactive Vital Signs [...] Value Unit Range Description Lab Report: Chlamydia/GC APTIMA/88669, C ULTURE, URINE, ROUTINE - Lab chlamydia DNA probe NOT DETECTED NOT DETECTED Lab Report: Chlamydia/GC APTIMA/03751, C ULTURE, URINE, ROUTINE - Microbiology Neisseria gonorrhoeae DNA probe NOT DETECTED NO T DETECTED Encounters Code Encounter Date Provider Facility CPT-53101 Level 3 Est. Patient 13:04:08 CDT Afia mckinney MD [facility] CPT-28194 Level 4 New Patient 12:04:05 CDT Afia sosa MD [facility] Procedures Code Procedure Name Date Entry Date Standard Desc ription CPT-97277 Sono pelvis non OB uterus ovaries cervix - XRAY USE ONLY 12:21:21 CDT
--- OUTSIDE RECORDS SUMMARY | 2019-08-08 07:54 | XMS REPORT | Clinical Summary ---
Author Author Admin, Carolyn KUMARI Organization [facility] Address Unknown Phone Unavailable Allergies, [...] then 7 days off-100mg PROGESTERONE MICRONIZED CREA 94171185318 Active Afia Lindo MD Active MICROGESTIN 06/10 1-20 MG-MCG ORAL TABS 1 tablet daily NORETHINDRONE ACET-ETHINYL EST 81254644868 Active Afia Lindo MD Active LEVOTHYROXINE SODIUM 75 MCG ORAL TABS 1 tablet daily LEVOTHYROXINE SODIUM 70252731744 Active Afia Lindo MD Active Vital Signs [...] Value Unit Range Description Lab Report: Chlamydia/GC APTIMA/52984, C ULTURE, URINE, ROUTINE - Lab chlamydia DNA probe NOT DETECTED NOT DETECTED Lab Report: Chlamydia/GC APTIMA/28651, C ULTURE, URINE, ROUTINE - Microbiology Neisseria gonorrhoeae DNA probe NOT DETECTED NO T DETECTED Encounters Code Encounter Date Provider Facility CPT-25321 Level 4 New Patient 12:04:05 CDT Afia sosa MD [facility]
--- OUTSIDE RECORDS SUMMARY | 2019-08-08 07:54 | XMS REPORT | Clinical Summary ---
[...] then 7 days off-100mg PROGESTERONE MICRONIZED CREA 99380125296 Active Afia Lindo MD Active MICROGESTIN 06/10 1-20 MG-MCG ORAL TABS 1 tablet daily NORETHINDRONE ACET-ETHINYL EST 03264798284 Active Afia Lindo MD Active LEVOTHYROXINE SODIUM 75 MCG ORAL TABS 1 tablet daily LEVOTHYROXINE SODIUM 43796163498 Active Afia Lindo MD Active Vital Signs [...] Value Unit Range Description Lab Report: Chlamydia/GC APTIMA/24284, C ULTURE, URINE, ROUTINE - Lab chlamydia DNA probe NOT DETECTED NOT DETECTED Lab Report: Chlamydia/GC APTIMA/57434, C ULTURE, URINE, ROUTINE - Microbiology Neisseria gonorrhoeae DNA probe NOT DETECTED NO T DETECTED Encounters Code Encounter Date Provider Facility CPT-59744 Level 4 New Patient 12:04:05 CDT Afia sosa MD [facility] Procedures Code Procedure Name Date Entry Date Standard Desc ription CPT-12694 Sono pelvis non OB uterus ovaries cervix - XRAY USE ONLY 12:21:21 CDT
--- OUTSIDE RECORDS SUMMARY | 2019-08-08 07:54 | XMS REPORT | Clinical Summary ---
Author Author Admin, Carolyn KUMARI Organization [facility] Address Unknown Phone Unavailable Allergies, Adverse [...] pill by mouth daily NORGESTIMATE- ETH ESTRADIOL 50743382767 Active Afia Lindo MD Active MICROGESTIN 1/20 1-20 MG-MCG ORAL TABS 1 tablet daily NORETHINDRONE ACET-ETHINYL EST 70581912876 No Longer Active Afia Lindo MD Active PROGESTERONE MICRONIZED CREA Apply 1/2 to 1ML on arms, chest and abdomen at bedtime day's - of cycle then 7 days off-100mg PROGESTERONE MICRONIZED CREA 46207111380 No Longer Active Afia Lindo MD Active LEVOTHYROXINE SODIUM 75 MCG ORAL TABS 1 tablet daily LEVOTHYROXINE SODIUM 14017616911 Active Afia Lindo MD Active PROGESTERONE MICRONIZED CREA Apply 1/2 to 1ML on arms, chest and abdomen at bedtime day's - of cycle then 7 days off-100mg PROGESTERONE MICRONIZED CREA PROGESTERONE MICRONIZED CREA In active MICROGESTIN 1/20 1-20 MG-MCG ORAL TABS 1 tablet daily MICROGESTIN 20 1-20 MG-MCG ORAL TABS 5645990 NORETHINDRONE ACET-ET HINYL EST Inactive Vital Signs [...] Value Unit Range Description Lab Report: Chlamydia/GC APTIMA/30512, C ULTURE, URINE, ROUTINE - Lab chlamydia DNA probe NOT DETECTED NOT DETECTED Lab Report: Chlamydia/GC APTIMA/48758, C ULTURE, URINE, ROUTINE - Microbiology Neisseria gonorrhoeae DNA probe NOT DETECTED NO T DETECTED Encounters Code Encounter Date Provider Facility CPT-81869 Level 3 Est. Patient 13:04:08 CDT Afia mckinney MD [facility] CPT-16525 Level 4 New Patient 12:04:05 CDT Afia sosa MD [facility] Procedures Code Procedure Name Date Entry Date Standard Desc ription CPT-16594 Sono pelvis non OB uterus ovaries cervix - XRAY USE ONLY 12:21:21 CDT
--- OUTSIDE RECORDS SUMMARY | 2019-08-08 07:54 | XMS REPORT | Clinical Summary ---
Author Author Admin, Carolyn KUMARI Organization [facility] Address Unknown Phone Unavailable Allergies, Adverse [...] then 7 days off-100mg PROGESTERONE MICRONIZED CREA 83944681556 Active Afia Lindo MD Active MICROGESTIN 06/10 1-20 MG-MCG ORAL TABS 1 tablet daily NORETHINDRONE ACET-ETHINYL EST 22280726804 Active Afia Lindo MD Active LEVOTHYROXINE SODIUM 75 MCG ORAL TABS 1 tablet daily LEVOTHYROXINE SODIUM 22411029521 Active Afia Lindo MD Active Vital Signs [...] Value Unit Range Description Lab Report: Chlamydia/GC APTIMA/84140, C ULTURE, URINE, ROUTINE - Lab chlamydia DNA probe NOT DETECTED NOT DETECTED Lab Report: Chlamydia/GC APTIMA/50464, C ULTURE, URINE, ROUTINE - Microbiology Neisseria gonorrhoeae DNA probe NOT DETECTED NO T DETECTED Encounters Code Encounter Date Provider Facility CPT-52426 Level 4 New Patient 12:04:05 CDT Afia sosa MD [facility]
--- OUTSIDE RECORDS SUMMARY | 2019-08-08 07:54 | XMS REPORT | Clinical Summary ---
Author Author Admin, Carolyn KUMARI Organization [facility] Address Unknown Phone Unavailable Allergies, Adverse Reactions, [...] pill by mouth daily NORGESTIMATE- ETH ESTRADIOL 38309283250 Active Afia Lindo MD Active MICROGESTIN 1/20 1-20 MG-MCG ORAL TABS 1 tablet daily NORETHINDRONE ACET-ETHINYL EST 18428584896 No Longer Active Afia Lindo MD Active PROGESTERONE MICRONIZED CREA Apply 1/2 to 1ML on arms, chest and abdomen at bedtime day's - of cycle then 7 days off-100mg PROGESTERONE MICRONIZED CREA 78248820195 No Longer Active Afia Lindo MD Active LEVOTHYROXINE SODIUM 75 MCG ORAL TABS 1 tablet daily LEVOTHYROXINE SODIUM 05768361906 Active Afia Lindo MD Active PROGESTERONE MICRONIZED CREA Apply 1/2 to 1ML on arms, chest and abdomen at bedtime day's - of cycle then 7 days off-100mg PROGESTERONE MICRONIZED CREA PROGESTERONE MICRONIZED CREA In active MICROGESTIN 1/20 1-20 MG-MCG ORAL TABS 1 tablet daily MICROGESTIN 20 1-20 MG-MCG ORAL TABS 8481581 NORETHINDRONE ACET-ET HINYL EST Inactive Advance Directives [...] Value Unit Range Description Lab Report: Chlamydia/GC APTIMA/64453, C ULTURE, URINE, ROUTINE - Lab chlamydia DNA probe NOT DETECTED NOT DETECTED Lab Report: Chlamydia/GC APTIMA/27468, C ULTURE, URINE, ROUTINE - Microbiology Neisseria gonorrhoeae DNA probe NOT DETECTED NO T DETECTED Encounters Code Encounter Date Provider Facility CPT-33574 Level 4 Est. Patient 15:26:22 CDT Afia mckinney MD [facility] CPT-92575 Level 3 Est. Patient 13:04:08 CDT Afia mckinney MD [facility] CPT-97478 Level 4 New Patient 12:04:05 CDT Afia sosa MD [facility] Procedures Code Procedure Name Date Entry Date Standard Desc ription CPT-10675 Sono pelvis non OB uterus ovaries cervix - XRAY USE ONLY 12:21:21 CDT
--- OUTSIDE RECORDS SUMMARY | 2019-08-08 07:54 | XMS REPORT | Clinical Summary ---
Author Author Admin, Carolyn KUMARI Organization [facility] Address Unknown Phone Unavailable Allergies, Adverse [...] pill by mouth daily NORGESTIMATE- ETH ESTRADIOL 59322574570 Active Afia Lindo MD Active MICROGESTIN 1/20 1-20 MG-MCG ORAL TABS 1 tablet daily NORETHINDRONE ACET-ETHINYL EST 30115723243 No Longer Active Afia Lindo MD Active PROGESTERONE MICRONIZED CREA Apply 1/2 to 1ML on arms, chest and abdomen at bedtime day's - of cycle then 7 days off-100mg PROGESTERONE MICRONIZED CREA 83473214991 No Longer Active Afia Lindo MD Active LEVOTHYROXINE SODIUM 75 MCG ORAL TABS 1 tablet daily LEVOTHYROXINE SODIUM 36123846411 Active Afia Lindo MD Active PROGESTERONE MICRONIZED CREA Apply 1/2 to 1ML on arms, chest and abdomen at bedtime day's - of cycle then 7 days off-100mg PROGESTERONE MICRONIZED CREA PROGESTERONE MICRONIZED CREA In active MICROGESTIN 1/20 1-20 MG-MCG ORAL TABS 1 tablet daily MICROGESTIN 20 1-20 MG-MCG ORAL TABS 6965155 NORETHINDRONE ACET-ET HINYL EST Inactive Advance Directives [...] Value Unit Range Description Lab Report: Chlamydia/GC APTIMA/58652, C ULTURE, URINE, ROUTINE - Lab chlamydia DNA probe NOT DETECTED NOT DETECTED Lab Report: Chlamydia/GC APTIMA/65867, C ULTURE, URINE, ROUTINE - Microbiology Neisseria gonorrhoeae DNA probe NOT DETECTED NO T DETECTED Encounters Code Encounter Date Provider Facility CPT-46172 Level 4 Est. Patient 15:26:22 CDT Afia mckinney MD [facility] CPT-39726 Level 3 Est. Patient 13:04:08 CDT Afia mckinney MD [facility] CPT-74436 Level 4 New Patient 12:04:05 CDT Afia sosa MD [facility] Procedures Code Procedure Name Date Entry Date Standard Desc ription CPT-06319 Sono pelvis non OB uterus ovaries cervix - XRAY USE ONLY 12:21:21 CDT
--- OUTSIDE RECORDS SUMMARY | 2019-08-08 07:54 | XMS REPORT | Clinical Summary ---
Author Author Admin, Carolyn KUMARI Organization [facility] Address Unknown Phone Unavailable Allergies, [...] then 7 days off-100mg PROGESTERONE MICRONIZED CREA 79187511677 Active Afia Lindo MD Active MICROGESTIN 06/10 1-20 MG-MCG ORAL TABS 1 tablet daily NORETHINDRONE ACET-ETHINYL EST 30052109177 Active Afia Lindo MD Active LEVOTHYROXINE SODIUM 75 MCG ORAL TABS 1 tablet daily LEVOTHYROXINE SODIUM 00276095988 Active Afia Lindo MD Active Vital Signs [...] Value Unit Range Description Lab Report: Chlamydia/GC APTIMA/11929, C ULTURE, URINE, ROUTINE - Lab chlamydia DNA probe NOT DETECTED NOT DETECTED Lab Report: Chlamydia/GC APTIMA/66407, C ULTURE, URINE, ROUTINE - Microbiology Neisseria gonorrhoeae DNA probe NOT DETECTED NO T DETECTED Encounters Code Encounter Date Provider Facility CPT-40360 Level 4 New Patient 12:04:05 CDT Afia sosa MD [facility] Procedures Code Procedure Name Date Entry Date Standard Desc ription CPT-85770 Sono pelvis non OB uterus ovaries cervix - XRAY USE ONLY 12:21:21 CDT
[2019-08-08 08:34] LABS: BASOPHILS # (AUTO) 0.1 10^3/uL (0.0-0.1); BASOPHILS % (AUTO) 1 % (0-10); EOSINOPHILS # (AUTO) 0.3 10^3/uL (0.0-0.3); EOSINOPHILS % (AUTO) 5 % (0-10); HEMATOCRIT 40 % (35-52); HEMOGLOBIN 13.3 G/DL (11.5-16.0); LYMPHOCYTES # (AUTO) 2.3 X 10^3 (1.0-4.0); LYMPHOCYTES % (AUTO) 35 % (12-44); MEAN CORPUSCULAR HEMOGLOBIN 31 PG (25-34); MEAN CORPUSCULAR HGB CONC 34 G/DL (32-36); MEAN CORPUSCULAR VOLUME 91 FL (80-99); MEAN PLATELET VOLUME 10.6 FL (7.4-10.4); MONOCYTES # (AUTO) 0.7 X 10^3 (0.0-1.0); MONOCYTES % (AUTO) 10 % (0-12); NEUTROPHILS # (AUTO) 3.2 X 10^3 (1.8-7.8); NEUTROPHILS % (AUTO) 49 % (42-75); PLATELET COUNT 241 10^3/uL (130-400); RED CELL DISTRIBUTION WIDTH 12.7 % (10.0-14.5); WHITE BLOOD COUNT 6.5 10^3/uL (4.3-11.0)
[2019-08-08] MEDS: LACTATED RINGERS 1,000 ML IV PRN ×2 (08:38→10:37)
--- NOTE | 2019-08-08 08:46 | Progress Note-Pre Operative ---
Pre-Operative Progress Note H&P Reviewed The H&P was reviewed, patient examined and no changes noted. Date Seen by Provider: Aug 08, 2019 Time Seen by Provider: 08:00 Date H&P Reviewed: Aug 08, 2019 Time H&P Reviewed: 08:00 Pre-Operative Diagnosis: T/A hyper, Bilat Hypr of Inf Turbs XAVIER ROMANO MD Aug 08, 2019 08:46
[2019-08-08] MEDS ORDERED: LIDOCAINE/EPI 1%-1:100,000 (XYLOCAINE) 20ML ONE ×2 (09:00→09:01)
[2019-08-08] MEDS ORDERED: PHENYLEPHRINE 0.5% NASAL SPR (NEO-SYNEPHRINE) REG ONE (09:00)
[2019-08-08] MEDS ORDERED: MIDAZOLAM 2 MG/2 ML (VERSED) VIAL ONE (09:01)
[2019-08-08] MEDS ORDERED: fentaNYL INJECTION 100 MCG/2 ML AMP ONE (09:01)
[2019-08-08] MEDS ORDERED: DEXAMETHASONE 10 MG/ML (DECADRON) 1 ML VIAL ONE (09:28)
[2019-08-08] MEDS ORDERED: proPOfol 200 MG/20 ML (DIPRIVAN) VIAL IV ONE (09:28)
[2019-08-08] MEDS ORDERED: ROCURONIUM 10 MG/ML 5 ML SYRINGE IV ONE (09:28)
[2019-08-08] MEDS ORDERED: LIDOCAINE PF 2% 5 ML (XYLOCAINE) VIAL ONE (09:28)
[2019-08-08] MEDS ORDERED: ONDANSETRON 4 MG/2 ML (SDV) Z0FRAN ONE (09:28)
[2019-08-08] MEDS ORDERED: SEVOFLURANE (ULTANE) 15 ML INHAL SOLN ONE ×3 (09:28)
[2019-08-08] MEDS ORDERED: NEOSTIGMINE 3 MG/3 ML VIAL ONE (09:57)
[2019-08-08] MEDS ORDERED: GLYCOPYRROLATE 0.2 MG/ML (ROBINUL) 2 ML VIAL ONE (09:57)
[2019-08-08] MEDS ORDERED: NS IV 1000 ML 1,000 ML IV SCH (10:02)
--- NOTE | 2019-08-08 10:02 | Progress Note-Post Operative ---
Post-Operative Progess Note Surgeon (s)/Termite Control Technician (s) Surgeon XAVIER ROMANO MD Termite Control Technician n/a Pre-Operative Diagnosis T/A hyper, Bilat Hypr of Inf Turbs Post-Operative Diagnosis same Post-Op Procedure Note Date of Procedure: Aug 08, 2019 Name of Procedure Performed: T/A, Bilat PArtial REd of Inf Turbs Description & Findings Description and Findings: n/a Anesthesia Type get Estimated Blood Loss minimal Packing none. Specimen(s) collected/removed tonsils XAVIER ROMANO MD Aug 08, 2019 10:02
[2019-08-08] MEDS ORDERED: morphine INJ 10 MG/ML 1ML (SYR OR VIAL) ONE (10:05)
[2019-08-08] MEDS ORDERED: morphine INJ 10 MG/ML 1ML (SYR OR VIAL) IVP ONE (10:15)
[2019-08-08] MEDS ORDERED: APAP 325 MG/10.15 ML LIQ (TYLENOL) UDC PO PRN (10:15)
[2019-08-08] MEDS ORDERED: HYDROcodone/APAP 7.5MG-325 MG/15 ML (LORTAB) UDC PO PRN (10:15)
[2019-08-08] MEDS: ONDANSETRON 4 MG/2 ML (SDV) Z0FRAN IVP PRN ×2 (10:29→10:43)
--- NOTE | 2019-08-08 11:35 | Anesthesia-General Post-Op ---
General Patient Condition Mental Status/LOC: Same as Preop Cardiovascular: Satisfactory Nausea/Vomiting: Absent Respiratory: Satisfactory Pain: Controlled Complications: Absent Post Op Complications Complications None Follow Up Care/Instructions Patient Instructions None needed. Anesthesia/Patient Condition Patient Condition Patient is doing well, no complaints, stable vital signs, no apparent adverse anesthesia problems. No complications reported per nursing. ETHAN MENDENHALL CRNA Aug 08, 2019 11:35
[2019-08-08] MEDS ORDERED: DEXAINTSOL PO (11:59)
[2019-08-08] MEDS ORDERED: HYDR15SO8 PO (11:59)
[2019-08-08] MEDS ORDERED: TETRACAINESUCKERS MT (11:59)
[2019-08-08] MEDS ORDERED: AMOX250S5 PO (11:59)
== END 2019-08-08 12:45 | disposition home or self-care (01) ==
LOC: SDC 07:48
PROVIDERS: ATTEND Otolaryngology Otolaryngology/Facial Plastic Surgery
DX: J35.3 Hypertrophy of tonsils with hypertrophy of adenoids (principal); J34.3 Hypertrophy of nasal turbinates; Z11.2 Encounter for screening for other bacterial diseases; G47.9 Sleep disorder, unspecified; R09.81 Nasal congestion; Z79.899 Other long term (current) drug therapy
CPT/HCPCS: 36415; 85025; 87081; 88304